=== PATIENT | male | born 1950 | race Caucasian/White ===

== ENCOUNTER → 2017-11-05 | Outpatient (CLI) | payer OTHER ==
[~2017-11-05] MED LIST: AMLO5TAB3 PO; ASPCH81X PO; ASPI-320 PO; ATOR-26 PO; ATV5X PO; CITA10TA4 PO; COEN30CA6 PO; LPR25 PO; LPT40 PO; LSN25 PO; LSX20 PO; NITR0.4S UT; NTRGSL/4 UT; OXYC-609 PO; PLV75 PO; POTA10CA28 PO; RANO500T PO; ZSTI
[2017-11-05 17:54] LABS: BLOOD UREA NITROGEN 27 mg/dl (7-18); CALCIUM 8.7 mg/dl (8.5-10.1); CARBON DIOXIDE 26 mmol/L (21-32); CREATININE 1.15 mg/dl (0.60-1.40); GLUCOSE 94 mg/dl (70-99); POTASSIUM 4.1 mmol/L (3.5-5.1); SODIUM 137 mmol/L (136-145)
[2017-11-05 18:20] LABS: HEMATOCRIT 38.7 % (42-52); HEMOGLOBIN 13.4 g/dL (14.0-18.0); MEAN CELL VOLUME 91.9 fL (80-100); MEAN CORPUSCULAR HEMOGLOBIN 31.8 pg (25-34); MEAN CORPUSCULAR HGB CONC 34.6 g/dl (32-36); MEAN PLATELET VOLUME 10.3 fL (7.4-10.4); PLATELET COUNT 192 K/uL (130-400); RED CELL DISTRIBUTION WIDTH CV 13.3 % (11.5-14.5); RED CELL DISTRIBUTION WIDTH SD 44.1 fL (36.4-46.3); WHITE BLOOD COUNT 6.03 K/uL (4.8-10.8)
== END | disposition home or self-care (01) ==
LOC: C.LABMFLN 15:22
PROVIDERS: ATTEND Internal Medicine Cardiovascular Disease
DX: I25.10 Atherosclerotic heart disease of native coronary artery without angina pectoris (principal); R06.09 Other forms of dyspnea

== ENCOUNTER → 2017-11-13 | Day surgery (SDC) | payer OTHER ==
[~2017-11-13] VITALS: Ht 180.3 cm; Wt 102.0 kg
[~2017-11-13] MED LIST changes: +ACETAMINOPHEN 325 MG TAB PO PRN; +FENTANYL CITRATE INJ 50 MCG/1 ML 2 ML VIAL ONE; +HEPARIN SOD (PORCINE) 1000 UNIT/ML 10 ML VIAL ONE; +MIDAZOLAM HCL 1 MG/ML 2ML VIAL ONE; +NITROGLYCERIN 0.4 MG SL PER TAB CHARGE SL PRN; +NITROGLYCERIN/D5W 100MCG/ML 20ML SYR ONE; +NiCARDipine HCL INJ 2.5 MG/ML 10 ML AMP ONE; +ONDANSETRON INJ 2 MG/ML 2 ML VIAL IV PRN; +SODIUM CHLORIDE 0.9% 1000ML 1,000 ML IV SCH; +SODIUM CHLORIDE 0.9% 1000ML 250 ML IV PRN
[2017-11-13 09:03] VITALS: BMI 31.0
[2017-11-13 09:04] VITALS: BP 138/69; PULSE 60; TEMP 36.6; O2SAT 98; Ht 180.3 cm; Wt 102.0 kg
--- NOTE | 2017-11-13 09:15 | History & Physical Bridge Note ---
H&P Re-Evaluation Bridge Note: I have examined the patient, reviewed the History & Physical and in the interval since the performance of the History & Physical I have noted the following changes of clinical significance: . He did not tolerate isosorbide mononitrate due to headache. Ranexa is expensive. Symptoms are worsening and has had some rest chest pain. Otherwise, No changes noted
--- NOTE | 2017-11-13 09:17 | Pre Sedation Assessment ---
Pre Sedation Assessment General Date of Sedation: Nov 13, 2017. Review Cardiovascular: regular rate, rhythm, no murmur Lungs: lungs clear Pre-Sedation Airway Assessment Smoking Status: Never Smoker Hx of Sleep Apnea: No Short Thick Neck: No Oral Cavity: WNL Mallampati Classification: Class I ASA Classification: Class III NPO Status Date of Last Intake of Fluids: Nov 12, 2017 Time of Last Intake of Fluids: 20:00 Date of Last Intake of Solids: Nov 12, 2017 Time of Last Intake of Solids: 20:00 Procedure Planning Contraindications for Sedation: None Current Medications Reviewed: Yes Notes The planned sedation has been discussed with the patient. Informed Consent was obtained. I have identified the patient, determined the appropriateness of sedation and have assessed the patient immediately prior to the procedure. All medicine(s) and interventions are by my order.
--- NOTE | 2017-11-13 10:40 | Post Sedation Assessment ---
Post Sedation Assessment General Date of Sedation Nov 13, 2017. Vital Signs: Vital Signs Past 12 Hours Date Time Temp Pulse Resp B/P (MAP) Pulse Ox O2 Delivery O2 Flow Rate FiO2 11/13/17 10:33 54 16 133/78 (96) 96 Room Air 11/13/17 09:04 36.6 60 16 138/69 (92) 98 Room Air Post Procedure Recovery Score Activity: (2) Moves 4 extremities * Respiration: (2) Deep breath/cough Circulation: (2) +/-20% PreAnes Value Consciousness: (2) Fully Awake Oxygen Saturation: (2) > 92% On Room Air Post Anesthesia Score: 10 Discharge Sedation Level of Care: Fast Track Phase II Post Sedation Plan On clinical assessment, the patient appears to have tolerated the sedation without complications. Patient is recovering as anticipated. Patient will continue to be monitored by nursing and may be discharged when sedation discharge criteria are met per below protocol. Upon Completions of procedure and additional 15 minutes continue every 5 minute vital signs and the P.A.R. score; then discharge to a Phase I or Fast Track to Phase II per the following guidelines: * Discharge Patient to appropriate Phase II area if PAR is 8 or greater or return to pre- procedure baseline. The post - procedure orders will be as directed. * If PAR score is less than 8 or not return to pre-procedure baseline then patient will follow Phase I monitoring till PAR is reached for Phase II. The Phase I may be done in procedure room or may call to secure a Phase I area. * If naloxone or flumazenil are used for reversal, hold in Phase I for an additional 60 -120 minutes before discharge to Phase II. Please call the Sedation Physician to re-evaluate and complete post-note for discharge to Phase II area. Do NOT discharge from procedure sedation or Phase 1 until post- sedation evaluation note is complete by procedure /sedation MD Sedation Discharge Instructions to be given to the patient at discharge to home.
--- NOTE | 2017-11-13 10:41 | Cardiac Catheterization ---
Procedure Note Procedure Date Nov 13, 2017. Pre-Procedure Diagnosis Angina, Positive Stress Test, CAD AUC Score 9 Post-Procedure Diagnosis Severe CAD Procedure(s) Performed Coronary Angiography, Left Heart Cath Home Staging Specialist Dr. Bernard Director Of Mechanical Engineering(s) Kenney Lozano Estimated Blood Loss < 25 ml Medication(s) Fentanyl, Heparin, Nicardipine, Versed, Lidocaine 1% Summary of Findings Coronary angiography: 1. Left main coronary artery: The LMCA is short in duration and appears to be small in caliber compared to the LAD, ramus intermedius, and circumflex. Given its short length, it is difficult to notice a discrete lesion, but the caliber appears to be at least 50% smaller than of the LAD. There was no dampening of the waveform when engaged with a 6 Portuguese JL 3.5 diagnostic catheter. 2. Left anterior descending: The LAD is a large caliber vessel that wraps around the apex. Ostial LAD 50%. Proximal LAD 30%. Mid LAD stent is patent. Just distal to the stent there is a haziness with a narrowing of approximately 50% visually. Large caliber D1 and medium caliber D2 without significant CAD. 3. Circumflex: Proximal circumflex 30%. Mid circumflex 30%. He distal circumflex continues as a small caliber AV groove vessel. Medium caliber OM1 without significant CAD. 4. Right coronary artery: The RCA is large and dominant. Diffuse mild nonobstructive CAD. Proximal RCA proximally 20%. Mid RCA 40%. Distal RCA 20% . PDA and PL branch without significant CAD. 5. Ramus intermedius: Medium to large caliber ramus. Ostial ramus 70% angiographically. BENITA 3 flow. Left heart catheterization: 1. Left ventriculography was not performed due to recent echo. 2. No aortic stenosis. 3. Normal LVEDP; 12mmHg. Sedation start time: 9:32 a.m. Sedation end time: 9:58 a.m. Impression: 1. Concern for significant left main coronary artery CAD. 2. Patent mid LAD stent with at least moderate CAD just distal to the stent with hazy appearance. 3. Severe CAD involving the ostial ramus intermedius. 4. Nonobstructive CAD within the RCA, circumflex, and ostial and proximal LAD. 5. Normal LVEDP. 6. No aortic stenosis. Plan: 1. Images were reviewed with Interventional Cardiology with concern of left main coronary artery. Dr. Ramirez plans for IVUS of left main coronary artery. Hemodynamics Rest Ao: 124/58 Final Ao: 123/58 LV: 126/0/12 Recommendations management recommendations (IVUS of LMCA) Specimens None Radiation Exposure (mGy) 1500 mGy. Fluoro time 6.7 min Contrast (mls) 70 ml Procedural Complication(s) None Disposition Alternative Financing Specialist Holding/Recovery ACC Data Cardiac Status Clinical evaluation leading to the procedure CAD Presntation: Stable angina, Positive Stress Test Anginal Classification: CCS III Heart Failure: No Cardiogenic Shock w/in 24Hrs: No Cardiac Arrest w/in 24Hrs: No Imaging studies past 6 months: No Stress studies past 6 months: Yes Standard Exercise Stress Test: Yes - Negative Stress Echocardiogram: Yes - Positive, Risk/Extent of Ischemia (Intermediate) Stress Testing w/SPECT MPI: No Cardiac CTA: No Coronary Anatomy Dominant: Right Left Main (% Stenosis): Ostial (50%) LAD (% Stenosis): Ostial (50%), Proximal (30%), Mid (50% and hazy just distal to mid LAD stent (Stent is patent)) D1 (% Stenosis): Normal D2 (% Stenosis): Normal Circumflex (% Stenosis): Proximal (30%), Mid (30%) OM1 (% Stenosis): Normal RCA (% Stenosis): Proximal (20%), Mid (40%), Distal (20%) R PDA (% Stenosis): Normal R PL1 (% Stenosis): Normal Ramus (% Stenosis): Ostial (70%) Left Ventricular Angiography EF (%): n/a Diagnostic Physician's Name: Percy Bernard MD Status: Elective Closure Device Percutaneous Entry Location: Radial Closure Device: Radial Band Recommendations: management recommendations (IVUS of LMCA)
--- NOTE | 2017-11-13 10:53 | Cardiac Catheterization ---
Procedure Note Procedure Date Nov 13, 2017. Pre-Procedure Diagnosis Positive Stress Test AUC Score 7 Post-Procedure Diagnosis Severe CAD Procedure(s) Performed Coronary Angiography, IVUS Gum Cook James Speed Runner(s) Marta Estimated Blood Loss 10 Medication(s) Fentanyl, Heparin, Versed Summary of Findings Indication: Positive stress test; known coronary artery disease with prior LAD stent Access: 6Fr slender right radial artery Catheters: JL3.5 guide Findings: For full details of patient's coronary angiography please see cath report dictated by Dr. Bernard. Briefly patient noted to have a patent LAD stent with suspected borderline LM disease. Decision to proceed with IVUS assessment of LM. -- IVUS Procedure -- LM cannulated with JL3.5 guide BMW wire placed into distal LAD IVUS LAD - pullback showed moderately calcifed plaque with 60-70% stenosis distal to prior stent. Stent patent with no significant ISR. Proximal LAD with diffuse moderate disease. Ostial LAD showed severe stenosis 70% (CSA 4.5 cm2) extending into LM. LM very short calcified with moderate eccentric plaque. BMW wire removed from LAD and placed into circumflex/OM2 IVUS circumflex -- moderate caliber vessel with 80-90% proximal stenosis Arterial Closure: TR Band Summary: 1. Severe ostial LAD stenosis extending into calcified left main with moderate eccentric plaque. 2. Severe proximal circumflex disease. Recommendations: CT surgery evaluation for consideration of CABG Hemodynamics Rest Ao: 124/58 Final Ao: 123/58 LV: -- Recommendations CABG Specimens None Radiation Exposure (mGy) 3171 Contrast (mls) 120 Fluids (cc crystalloids) 114 Drains None Anesthesia Moderate Procedural Complication(s) None Disposition Trouble Locator Test Desk Holding/Recovery ACC Data Cardiac Status Clinical evaluation leading to the procedure CAD Presntation: Positive Stress Test Anginal Classification: CCS III Heart Failure: No, NYHA Class: CCS I Cardiogenic Shock w/in 24Hrs: No Cardiac Arrest w/in 24Hrs: No Imaging studies past 6 months: Yes Stress studies past 6 months: Yes Stress Echocardiogram: Yes - Positive Diagnostic Physician's Name: Percy Bernard MD Status: Elective Closure Device Percutaneous Entry Location: Radial Closure Device: Radial Band Recommendations: CABG Lesion Segment Name: LM/ostial LAD IVUS: Yes Intraprocedure Events Significant Dissection: No Perforation: No
--- NOTE | 2017-11-13 11:12 | Discharge Instructions ---
Discharge Instructions Date of Service Nov 13, 2017. Visit Reason for Visit: Cardiac cath for abnormal stress echo and angina. Discharge Discharge Diagnosis / Problem: Severe coronary artery disease. Discharge Goals Goal(s): Diagnostic testing Medications Stopped Medications Name(s): Plavix Activity Recommendations Activity Limitations: per Instructions/Follow-up section Anesthesia . Post Anesthesia Instructions: If you have had General Anesthesia or IV Sedation: * Do not drive today. * Resume driving when surgeon permits. * Do not make important decisions or sign legal documents today. * Call surgeon for: 1. Temperature elevations greater than 101 degrees F. 2. Uncontrollable pain. 3. Excessive bleeding. 4. Persistent nausea and vomiting. 5. Medication intolerance (nausea, vomiting or rash). * For nausea and vomiting use only clear liquids such as: tea, soda, bouillon until nausea subsides, then gradually increase diet as tolerated. * If you have any concerns or questions, call your surgeon's office. If physician is unavailable and it is an emergency, call 911 or go to the nearest emergency room. . Instructions / Follow-Up Instructions / Follow-Up Follow up: 1. Recommend CT surgery evaluation for bypass surgery. Because you deny angina at rest, this can be done as an outpatient, but recommend that you be seen soon. [facility] will contact you soon with date/time of appointment. 2. If you experience angina that does not resolve within 5 min or if it occurs at rest, recommend calling 911 immediately. 3. Follow up with Dr. Bernard's office following bypass surgery. Please call his office when you are discharged from [facility]. ACTIVITY RECOMMENDATIONS: Excess manipulation of the wrist should be avoided for the next 24-48 hours. * No lifting over 2 pounds (approximately a 1/2 gallon of milk) with the utilized arm for 24 hours. * No strenuous activity such as bowling or tennis for 3 days. * Keep the site of the procedure covered with a bandage for 24 hours. *You may shower the day after the procedure. Do not take a tub bath or submerge the puncture site in water for the next 3 days. *Do not operate any motorized equipment for 3 days. SPECIAL CARE INSTRUCTIONS: The site may be slightly bruised and sore following your procedure. Should any of the following occur, contact the DrZee who performed your procedure. 1. Redness/inflammation, swelling, chills, or fever, or colored drainage at procedure site within 3-7 days after your procedure. 2. Coldness, discoloration, ongoing numbness, severe pain, or swelling. Expect mild tingling of hand and tenderness at the puncture site for up to three days. If this persists beyond three days, or other symptoms develop, notify the Dr. who performed your procedure. BLEEDING: If the procedure site on your wrist begins to bleed, do not panic 1. Place 1 or 2 fingers firmly just slightly above the insertion site to stop the bleeding. You may be able to feel your pulse as you hold pressure. 2. Lift your finger after 5 minutes to see if the bleeding has stopped. 3. Once the bleeding has stopped, gently wipe the wrist area clean with a bandage. * If the bleeding from your wrist does not stop after 10 minutes, or if there is a large amount of bleeding or spurting, call 911 (do not drive yourself to the hospital). SKIN IRRITATION: * You may experience some redness and/or swelling in the area where radiation was administered. If any skin irritation occurs, please contact your family physician. FOLLOW UP VISIT: Keep any scheduled doctor appointments. Diet Recommendations Recommended Home Diet: low cholesterol Procedures Procedures Performed: 1. Coronary angiography and left heart cath 2. IVUS of left main coronary artery and left anterior descending artery. Pending Studies Studies pending at discharge: no Medical Emergencies . Who to Call and When: Medical Emergencies: If at any time you feel your situation is an emergency, please call 911 immediately. . Non-Emergent Contact Non-Emergency issues call your: Dividend Deposit Entry Clerk . . "Provider Documentation" section prepared by Percy Gonsalves. .
[2017-11-13 13:30] VITALS: BP 138/72; PULSE 59; O2SAT 96
--- NOTE | 2017-11-13 14:25 | DIAGNOSTIC IMAGING REPORT ---
ULTRASOUND OF THE CAROTID ARTERIES CLINICAL HISTORY: Coronary artery disease. Preoperative examination. COMPARISON STUDY: No priors. TECHNIQUE: Real-time, grayscale, and color Doppler sonography of the carotid arteries is performed. Images are reviewed in the transverse and longitudinal planes. FINDINGS: Blood pressures were not assessed. The carotid arteries are patent bilaterally and demonstrate antegrade flow. There is mild atherosclerotic plaque seen in the carotid bulb. Normal doppler arterial waveforms are seen throughout. Velocity measurements are listed below. Common carotid peak systolic velocity (cm/sec): RIGHT: 56 LEFT: 65 ICA proximal peak systolic velocity (cm/sec): RIGHT: 62 LEFT: 66 ICA mid peak systolic velocity (cm/sec): RIGHT: 69 LEFT: 115 ICA distal peak systolic velocity (cm/sec): RIGHT: 81 LEFT: 84 ICA/CC peak systolic ratio: RIGHT: 1.4 LEFT: 1.8 Antegrade flow was shown in the vertebral arteries. The external carotid arteries are patent. IMPRESSION: 1. There is no sonographic evidence of hemodynamically significant stenosis in the right or left carotid arterial system. 2. Antegrade flow is shown in the vertebral arteries. Electronically signed by: Myles Hernandez M.D. 11/13/2017 2:24 PM Dictated Date/Time: 11/13/2017 2:21 PM
== END | disposition home or self-care (01) ==
LOC: C.CATH 08:08
PROVIDERS: ATTEND Internal Medicine Cardiovascular Disease
DX: I25.10 Atherosclerotic heart disease of native coronary artery without angina pectoris (principal); R06.09 Other forms of dyspnea; E78.5 Hyperlipidemia, unspecified; I10 Essential (primary) hypertension; Z90.89 Acquired absence of other organs; Z95.818 Presence of other cardiac implants and grafts; Z83.3 Family history of diabetes mellitus; Z82.49 Family history of ischemic heart disease and other diseases of the circulatory system; Z82.0 Family history of epilepsy and other diseases of the nervous system; F32.9 Major depressive disorder, single episode, unspecified; Z79.82 Long term (current) use of aspirin

== ENCOUNTER 2017-12-11 15:45 | Observation (INO) | payer OTHER ==
[~2017-12-11] VITALS: Ht 182.9 cm; Wt 103.1 kg
[~2017-12-11 15:45] MED LIST changes: -ACETAMINOPHEN 325 MG TAB PO PRN; +AMLO-110 PO; -AMLO5TAB3 PO; -ASPCH81X PO; +ASPEC81 PO; -ASPI-320 PO; -ATOR-26 PO; -ATV5X PO; -COEN30CA6 PO; -FENTANYL CITRATE INJ 50 MCG/1 ML 2 ML VIAL ONE; -HEPARIN SOD (PORCINE) 1000 UNIT/ML 10 ML VIAL ONE; -LPR25 PO; -LSN25 PO; -LSX20 PO; -MIDAZOLAM HCL 1 MG/ML 2ML VIAL ONE; -NITR0.4S UT; -NITROGLYCERIN 0.4 MG SL PER TAB CHARGE SL PRN; -NITROGLYCERIN/D5W 100MCG/ML 20ML SYR ONE; -NiCARDipine HCL INJ 2.5 MG/ML 10 ML AMP ONE; -ONDANSETRON INJ 2 MG/ML 2 ML VIAL IV PRN; -OXYC-609 PO; -PLV75 PO; -POTA10CA28 PO; -SODIUM CHLORIDE 0.9% 1000ML 1,000 ML IV SCH; -SODIUM CHLORIDE 0.9% 1000ML 250 ML IV PRN; -ZSTI
[2017-12-11] MEDS ORDERED: OXYC-609 PO (16:06)
[2017-12-11] MEDS ORDERED: ATV5X PO (16:06)
[2017-12-11] MEDS ORDERED: LPR25 PO (16:06)
[2017-12-11 17:14] LABS: BASO % 0.3 %; BASO ABS # 0.02 K/uL (0-0.2); EOS % 2.7 %; EOS ABS # 0.16 K/uL (0-0.5); HEMATOCRIT 27.8 % (42-52); HEMOGLOBIN 9.2 g/dL (14.0-18.0); IG# 0.01 K/uL (0.00-0.02); LYMPH % 18.2 %; LYMPH ABS # 1.07 K/uL (1.2-3.4); MEAN CELL VOLUME 95.9 fL (80-100); MEAN CORPUSCULAR HEMOGLOBIN 31.7 pg (25-34); MEAN CORPUSCULAR HGB CONC 33.1 g/dl (32-36); MEAN PLATELET VOLUME 9.5 fL (7.4-10.4); MONO % 8.9 %; MONO ABS # 0.52 K/uL (0.11-0.59); NEUT % 69.7 %; NEUT ABS # 4.09 K/uL (1.4-6.5); PLATELET COUNT 235 K/uL (130-400); RED CELL DISTRIBUTION WIDTH CV 16.5 % (11.5-14.5); WHITE BLOOD COUNT 5.87 K/uL (4.8-10.8)
[2017-12-11 17:23] LABS: PTT PATIENT 25.6 SECONDS (21.0-31.0)
[2017-12-11] MEDS ORDERED: FUROSEMIDE 40 MG/4 ML VIAL IV STA (17:30)
[2017-12-11 17:36] LABS: ALBUMIN 3.3 gm/dl (3.4-5.0); CALCIUM 8.5 mg/dl (8.5-10.1); CREATININE 0.98 mg/dl (0.60-1.40); POTASSIUM 4.3 mmol/L (3.5-5.1)
[2017-12-11 17:50] LABS: CKMB 0.9 ng/ml (0.5-3.6); TOTAL PROTEIN 6.5 gm/dl (6.4-8.2)
--- NOTE | 2017-12-11 18:03 | Cardiology Consultation ---
Cardiology Consultation Date of Consultation: Dec 11, 2017. Requesting Physician: Dr. Vang and Dr. Merchant Attending Physician: Dr. Merchant Reason for Consultation: SOB Pt evaluation today including: conversation w/ patient, conversation w/ family , physical exam, chart review, lab review, review of studies, review of inpatient medication list, conversation w/ attending History of Present Illness Mr. Patton is a very pleasant 67-year-old gentleman with a history significant for CAD, LAD PCI, CABG x 3, hypertension, and dyslipidemia. He has had the following studies/procedures: 1. Stress echo 07/27/2015: Abnormal stress echo demonstrating akinesis of the apex, anterior, anteroseptal, and anterolateral nguyen, concerning for LAD ischemia resting EF 55% with normal wall motion. Exercised 4 minutes and 30 seconds on Arturo protocol. 90% MPHR. Chest pain with exercise. 2. Cardiac catheterization 07/27/2015: Ostial LAD 20%. Mid LAD 90%. 3 x 18 mm resolute CHELSEA mid LAD. Small step-down reported. 3. Stress echo 10/09/2015: Normal stress echo and ECG at 95% MPHR. Exercised 9 minutes on Arturo protocol. Hypertensive response to exercise. 4. Cardiac catheterization 11/13/2017: Severe LMCA CAD. Ostial LAD 70%. Proximal LAD 30%. Mid LAD stent patent. Distal to mid LAD stent haziness with 60-70%. Proximal circumflex 80-90%. Mid circumflex 30%. Proximal RCA 20%. Mid RCA 40%. Distal RCA 20%. Ostial ramus 70%. LVEDP 12. 5. CABG x3 at [facility] 12/02/2017: HOUSE to LAD; SVG to ramus; SVG to distal circumflex. He underwent bypass surgery at [facility] on 12/02/2017. Postop recovery was complicated by postoperative atrial fibrillation which was reportedly treated amiodarone therapy. He also had a right sided pneumothorax and received a pigtail catheter. He was discharged on 12/09/2017. He states that he did not feel well night before discharge and has not felt well since. He received Lasix the first few days following surgery and believes he may have felt better than. Since then he has felt very tired and short of breath. He pushes himself more yesterday and last evening felt very tired and restless. He was unable to sleep. At 2:30 a.m. in the morning he was more significantly short of breath. Dyspnea occurred both at rest and with exertion. He also felt short of breath while laying in bed. He has had edema but thought actually looked a bit better yesterday. He also feels a tremor in sensation in his chest up into his neck and head. He has noted this ever since surgery. It shoots across the right side of his chest to the left. He denies actual angina. His sternotomy site has not been significantly uncomfortable. He denies any recent fevers, chills, cough, drainage from his sternotomy site, bleeding, melena, hematochezia, nausea, vomiting, or syncope. He has noted his heart beating more ever since surgery. While at [facility], he was noted to be in normal sinus rhythm on ECG. He is also in sinus rhythm here as documented on ECG and telemetry. Review of systems: As above. Review of systems otherwise negative/ unremarkable. Past Medical/Surgical History 1. CAD status post mid LAD PCI and CABG x3 2. Hypertension 3. Dyslipidemia 4. Postoperative atrial fibrillation 5. Headache Family History No known premature CAD in first-degree relatives. Paternal uncles suddenly in 60s or 70s. Social History Smoking Status: Never Smoker History of Alcohol Use: No Denies tobacco, alcohol, or drug abuse. and lives at home with his . Has 2 daughters, Gloria and Sheryl, who are TRAINING CONSULTANT's with [employer] [facility] [place], and 1 son. His children live locally. 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 His family is present at his bedside. Allergies Coded Allergies: Lisinopril (Unverified Allergy, Unknown, unknown, 12/11/17) Loratadine (Unverified Allergy, Unknown, unknown, 12/11/17) Medications Current Inpatient Medications Medications (Trade) Dose Ordered Sig/Joe Route Start Time Stop Time Status Last Admin Dose Admin Furosemide 20 mg/ Syringe 2 ml @ 4 mls/min ONE IV 12/11/17 22:00 01/10/18 21:59 UNV Home medications include 1. Aspirin 81 mg daily 2. Amlodipine 5 mg daily 3. Metoprolol 25 mg twice daily 4. Lipitor 80 mg daily 5. Ranexa 500 mg twice daily 6. Citalopram 7. Oxycodone p.r.n. Physical Exam Vital Signs Past 12 Hours Date Time Temp Pulse Resp B/P (MAP) Pulse Ox O2 Delivery O2 Flow Rate FiO2 12/11/17 17:06 98 Room Air 12/11/17 17:04 72 12/11/17 15:54 36.7 80 20 111/73 96 Room Air Gen.: No acute distress. Alert and oriented. HEENT: Anicteric sclera. Neck: No significant JVD, but does have hepatic jugular reflux. No bruits. Normal carotid upstrokes bilaterally. Cardiac: PMI was nondisplaced. No ventricular heave. Regular. Normal S1-S2. No murmurs, rubs, or gallops. Pulmonary: Clear to auscultation bilaterally without wheezes, rales, or rhonchi. Abdomen: Soft, nontender, nondistended, with normoactive bowel sounds. No bruits noted. Extremities: 2+ radial pulses bilaterally. 2+ posterior tibialis pulses bilaterally. Bilateral lower extremity edema, trace to 1+. No cyanosis. Psychiatric: Affect appears appropriate. Chest: Sternotomy site appears clean, dry, and intact without erythema or discharge. Data Laboratory Results: Last 24 Hours Test 12/11/17 16:08 12/11/17 17:03 Creatine Kinase MB Ratio White Blood Count 5.87 K/uL Red Blood Count 2.90 M/uL Hemoglobin 9.2 g/dL Hematocrit 27.8 % Mean Corpuscular Volume 95.9 fL Mean Corpuscular Hemoglobin 31.7 pg Mean Corpuscular Hemoglobin Concent 33.1 g/dl Platelet Count 235 K/uL Mean Platelet Volume 9.5 fL Neutrophils (%) (Auto) 69.7 % Lymphocytes (%) (Auto) 18.2 % Monocytes (%) (Auto) 8.9 % Eosinophils (%) (Auto) 2.7 % Basophils (%) (Auto) 0.3 % Neutrophils # (Auto) 4.09 K/uL Lymphocytes # (Auto) 1.07 K/uL Monocytes # (Auto) 0.52 K/uL Eosinophils # (Auto) 0.16 K/uL Basophils # (Auto) 0.02 K/uL RDW Standard Deviation 52.0 fL RDW Coefficient of Variation 16.5 % Immature Granulocyte % (Auto) 0.2 % Immature Granulocyte # (Auto) 0.01 K/uL Prothrombin Time 10.5 SECONDS Prothromb Time International Ratio 1.0 Activated Partial Thromboplast Time 25.6 SECONDS Partial Thromboplastin Ratio 1.0 Sodium Level 137 mmol/L Potassium Level 4.3 mmol/L Chloride Level 106 mmol/L Carbon Dioxide Level 26 mmol/L Anion Gap 5.0 mmol/L Blood Urea Nitrogen 22 mg/dl Creatinine 0.98 mg/dl Est Creatinine Clear Calc Drug Dose 94.1 ml/min Estimated GFR () 93.4 Estimated GFR (Non- 80.6 BUN/Creatinine Ratio 22.3 Random Glucose 90 mg/dl Calcium Level 8.5 mg/dl Magnesium Level 2.3 mg/dl Direct Bilirubin 0.4 mg/dl Alanine Aminotransferase (ALT/SGPT) 82 U/L Albumin 3.3 gm/dl CTA chest at [facility] 12/11/2017: No pulmonary embolus or aortic dissection. Mild atelectatic lung and/or infiltrate of the left lung base with small pleural effusion. ECG personally reviewed. ECG at [facility] 12/11/2017 at 8:26 a.m.: Sinus rhythm at 72 bpm. Inferior infarct. Telemetry personally reviewed Sinus rhythm noted on telemetry. Records from [facility] were obtained and reviewed. Operative note from [facility] was obtained and reviewed. Catheterization report reviewed. Labs reviewed. ProBNP at [facility] was elevated at 941. Assessment & Plan ASSESSMENT/PLAN: 1. Acute diastolic CHF: He appears to be mildly hypervolemic following his bypass surgery. Some of this may be diastolic heart failure while some could be iatrogenic following his recent hospitalization. Recommend Lasix 20 mg IV now and again in a few hours to promote diuresis. Monitor labs in the morning. Low-sodium diet. Hopefully his shortness of breath improves. Monitor fluid balance and daily weight. Echocardiogram in the morning. 2. CAD status post PCI and CABG x3: No angina. High sensitivity troponin level was negative at [facility]. Recommend continuation of aspirin 81 mg daily. Continue high-intensity statin therapy continue beta-breanna. Ranexa can be discontinued now that he has undergone revascularization. 3. Hypertension: Continue home medications. Blood pressure adequately controlled. 4. Disposition: Cardiology will continue to follow. Plan of care has been discussed with Dr. Merchant, the admitting physician for the hospitalist group. Case was also discussed with ER physician, Taj. Greater than 40 minute spent, with greater than 50% of that time spent counseling patient and his family and coordinating care with other involved physicians.
[2017-12-11] MEDS ORDERED: LORAZEPAM 0.5 MG TAB PO PRN (18:30)
[2017-12-11] MEDS ORDERED: NITROGLYCERIN 0.4 MG SL PER TAB CHARGE SL PRN (18:30)
[2017-12-11] MEDS ORDERED: ACETAMINOPHEN 325 MG TAB PO PRN (18:30)
--- NOTE | 2017-12-11 18:55 | History and Physical ---
History & Physical Date & Time of Service: Dec 11, 2017 at 18:32 Chief Complaint: SOB Primary Care Physician: Myles Rushing M.D. History of Present Illness Source: patient, hospital records, other 67 y/o M Hx HTN, HPL, CAD - underwent 3 vessel CABG 12/02/17 - post-op course complicated by a R pneumothorax and post-op AF. The pt since discharge states that he has felt increasingly weak, c/o a fluttering sensation in his chest and is SOB with exertion. He does not c/o CP, a productive cough, N/V, diarrhea, dysuria or fevers. He was at [place] earlier in the day and underwent a CTA to assess for PE and dissection, neither of which were present. There was some concern for a LLL infiltrate, although the reading was hedged with the option of atelectasis. The pt was evaluated by cardiology in the ER and is admitted due to suspicion of new-onset CHF. Initial labs reveal anemia and a marginal troponin which is expected. LFTs are also elevated. Past Medical/Surgical History 1) CAD 2) HTN 3) HPL 4) Post-op AF 5) Post-op R pneumothorax Cardiac history as follows per cardiology 1. Stress echo 07/27/2015: Abnormal stress echo demonstrating akinesis of the apex, anterior, anteroseptal, and anterolateral nguyen, concerning for LAD ischemia resting EF 55% with normal wall motion. Exercised 4 minutes and 30 seconds on Arturo protocol. 90% MPHR. Chest pain with exercise. 2. Cardiac catheterization 07/27/2015: Ostial LAD 20%. Mid LAD 90%. 3 x 18 mm resolute CHELSEA mid LAD. Small step-down reported. 3. Stress echo 10/09/2015: Normal stress echo and ECG at 95% MPHR. Exercised 9 minutes on Arturo protocol. Hypertensive response to exercise. 4. Cardiac catheterization 11/13/2017: Severe LMCA CAD. Ostial LAD 70%. Proximal LAD 30%. Mid LAD stent patent. Distal to mid LAD stent haziness with 60-70%. Proximal circumflex 80-90%. Mid circumflex 30%. Proximal RCA 20%. Mid RCA 40%. Distal RCA 20%. Ostial ramus 70%. LVEDP 12. 5. CABG x3 at [facility] 12/02/2017: HOUSE to LAD; SVG to ramus; SVG to distal circumflex. Family History Patient reports no known family medical history. 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 Smoking Status: Never Smoker Marital Status: Occupational Status: employed Multi-Drug Resistant Organisms History of MDRO: No Allergies Coded Allergies: Lisinopril (Unverified Allergy, Unknown, unknown, 12/11/17) Loratadine (Unverified Allergy, Unknown, unknown, 12/11/17) Home Medications Scheduled Amlodipine (Norvasc), 5 MG PO DAILY Aspirin (Aspirin EC Low Dose), 81 MG PO QAM Atorvastatin (Lipitor), 80 MG PO QAM Citalopram Hydrobromide (Citalopram Hydrobromide), 1 TAB PO DAILY Metoprolol Tartrate (Lopressor), 25 MG PO BID Nitroglycerin (Nitrostat), 0.4 MG UT PRN Ranolazine (Ranexa), 1,000 MG PO BID Scheduled PRN Lorazepam (Lorazepam), 0.5 MG PO Q6 PRN for Anxiety Oxycodone HCl (Oxycodone HCl), 5 MG PO Q8 PRN for Pain Review of Systems Constitutional: + weakness, No fever, No chills, No sweats Eyes: No worsening of vision ENT: No hearing loss, No unusual epistaxis, No nasal symptoms Respiratory: + dyspnea on exertion, No cough, No sputum, No wheezing Cardiovascular: No chest pain, No orthopnea, No PND Abdomen: No pain, No nausea, No vomiting Musculoskeletal: + problem reported (Minimal chest wall pain at surgical site) , No joint pain Genitourinary - Male: No hematuria, No dysuria Neurologic: + weakness, No memory loss, No paralysis Psychiatric: No depression symptoms Endocrine: + fatigue Hematologic / Lymphatic: No abnormal bleeding/bruising Integumentary: No rash Allergic / Immunologic: No environmental allergies Physical Exam Vital Signs Date Time Temp Pulse Resp B/P (MAP) Pulse Ox O2 Delivery O2 Flow Rate FiO2 12/11/17 18:18 70 18 124/63 98 Room Air 12/11/17 17:06 98 Room Air 12/11/17 17:04 72 12/11/17 15:54 36.7 80 20 111/73 96 Room Air General Appearance: WD/WN, no apparent distress Head: normocephalic Eyes: normal inspection ENT: normal ENT inspection, pharynx normal Neck: supple, + JVD (Minimal JVD is present ) Respiratory/Chest: + pertinent finding (LArge sternotomy scar - appears to be healing well) Cardiovascular: regular rate, rhythm, no edema, no gallop Abdomen/GI: normal bowel sounds, non tender, soft Back: normal inspection, no CVA tenderness Extremities/Musculoskelatal: normal capillary refill, + pedal edema, + pertinent finding (Bruising due to v. stripping is present) Neurologic/Psych: director trading II-XII nml as tested, no motor/sensory deficits, alert, oriented x 3 Skin: normal color Diagnostics Laboratory Results Results Past 24 Hours Test 12/11/17 17:03 12/11/17 18:13 Range/Units White Blood Count 5.87 4.8-10.8 K/uL Red Blood Count 2.90 4.7-6.1 M/uL Hemoglobin 9.2 14.0-18.0 g/dL Hematocrit 27.8 42-52 % Mean Corpuscular Volume 95.9 80-100 fL Mean Corpuscular Hemoglobin 31.7 25-34 pg Mean Corpuscular Hemoglobin Concent 33.1 32-36 g/dl Platelet Count 235 130-400 K/uL Mean Platelet Volume 9.5 7.4-10.4 fL Neutrophils (%) (Auto) 69.7 % Lymphocytes (%) (Auto) 18.2 % Monocytes (%) (Auto) 8.9 % Eosinophils (%) (Auto) 2.7 % Basophils (%) (Auto) 0.3 % Neutrophils # (Auto) 4.09 1.4-6.5 K/uL Lymphocytes # (Auto) 1.07 1.2-3.4 K/uL Monocytes # (Auto) 0.52 0.11-0.59 K/uL Eosinophils # (Auto) 0.16 0-0.5 K/uL Basophils # (Auto) 0.02 0-0.2 K/uL RDW Standard Deviation 52.0 36.4-46.3 fL RDW Coefficient of Variation 16.5 11.5-14.5 % Immature Granulocyte % (Auto) 0.2 % Immature Granulocyte # (Auto) 0.01 0.00-0.02 K/uL Prothrombin Time 10.5 9.0-12.0 SECONDS Prothromb Time International Ratio 1.0 0.9-1.1 Activated Partial Thromboplast Time 25.6 21.0-31.0 SECONDS Partial Thromboplastin Ratio 1.0 Sodium Level 137 136-145 mmol/L Potassium Level 4.3 3.5-5.1 mmol/L Chloride Level 106 98-107 mmol/L Carbon Dioxide Level 26 21-32 mmol/L Anion Gap 5.0 3-11 mmol/L Blood Urea Nitrogen 22 7-18 mg/dl Creatinine 0.98 0.60-1.40 mg/dl Est Creatinine Clear Calc Drug Dose 94.1 ml/min Estimated GFR () 93.4 Estimated GFR (Non- 80.6 BUN/Creatinine Ratio 22.3 10-20 Random Glucose 90 70-99 mg/dl Calcium Level 8.5 8.5-10.1 mg/dl Magnesium Level 2.3 1.8-2.4 mg/dl Total Bilirubin 2.3 0.2-1 mg/dl Direct Bilirubin 0.4 0-0.2 mg/dl Aspartate Amino Transf (AST/SGOT) 43 15-37 U/L Alanine Aminotransferase (ALT/SGPT) 82 12-78 U/L Alkaline Phosphatase 82 45-117 U/L Total Creatine Kinase 40 39-308 U/L Creatine Kinase MB 0.9 0.5-3.6 ng/ml Creatine Kinase MB Ratio 2.3 0-3.0 Troponin I 0.046 0-0.045 ng/ml Total Protein 6.5 6.4-8.2 gm/dl Albumin 3.3 3.4-5.0 gm/dl Thyroid Stimulating Hormone (TSH) 1.010 0.300-4.500 uIu/ml Diagnostic Radiology CTA - no PE, dissection - questionable LLL infiltrate vs atelectasis Normal EKG Impression Assessment and Plan 67 y/o M Hx HTN, HPL, CAD - underwent 3 vessel CABG 12/02/17 - post-op course complicated by a R pneumothorax and post-op AF. The pt since discharge states that he has felt increasingly weak, c/o a fluttering sensation in his chest and is SOB with exertion. He does not c/o CP, a productive cough, N/V, diarrhea, dysuria or fevers. He was at [place] earlier in the day and underwent a CTA to assess for PE and dissection, neither of which were present. There was some concern for a LLL infiltrate, although the reading was hedged with the option of atelectasis. The pt was evaluated by cardiology in the ER and is admitted due to suspicion of new-onset CHF. 1) Exertional dyspnea, fatigue - suspected due o CHF - Cardiology is consulted and an echo is pending for AM. I/Os, daily weights requested. Pt provided with 20mg Lasix in ER - will cont 20mg daily for now. Elevated LFTs may support diagnosis. 2) Palpitations - continues to c/o fluttering sensation despite entirely normal rhythm on EKG and monitor - we will monitor on tele as he does have a history of post-op AF - cont B breanna. 3) CAD - troponin elevation is present, however, this is likely residual - we will trend - cont Statin, B breanna, ASA. 4) LFTs are slightly elevated - this may be the effect of surgery or passive congestion due to CHF - there is cholelithiasis on CT although he does not have any abdominal pain. Would explore GI etiology if there is an upward trend or related clinical signs. 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 Y/N: Yes Risk Level: Moderate Given or contraindicated: Unfractionated heparin SQ
[2017-12-11] MEDS ORDERED: IV FLUIDS COMPLETED PRN (19:00)
[2017-12-11 20:00] VITALS: BP 148/76; PULSE 89; TEMP 36.7; O2SAT 98; Ht 182.9 cm; Wt 103.1 kg
--- NOTE | 2017-12-11 20:25 | EMERGENCY ROOM VISIT NOTE ---
History Report prepared by Sudhir: Shane Porter Under the Supervision of: Dr. Duncan Vang M.D. First contact with patient: 16:07 Chief Complaint: SHORTNESS OF BREATH Stated Complaint: SOB Nursing Triage Summary: Had triple bypass last week. Discharged two days ago. Has had increasing SOB. Throbbing the whole way across chest going up into head. No cough or fever. History of Present Illness The patient is a 67 year old male who presents to the Emergency Room with complaints of worsening chest pain and shortness of breath that the patient began to experience two days ago. He describes his chest pain as a "throbbing." The patient's symptoms began shortly after being discharged from [facility] following a Triple Bypass surgery last week. The patient mentioned multiple occurrences during his time at [place] upset him. He noted that his lung collapsed and he had a breathing tube placed. The tube broke at one point, and he was stuck with air leaking for a prolonged time. The patient also went into Atrial Fibrillation following the surgery. He mentioned the shortness of breath and chest pain before discharge, but they did nothing about it. He went to the [place] emergency department this morning and had blood work and a chest CT performed which were unremarkable as far as the patient knows. He claims that the oxygen he received en route to [place]. [place] ED suggested that the patient go back to [place], but he does not want to go back. The patient notes that he was very restless last night and could not sleep. He thinks that he was experiencing some atrial flutter again last night. Pt denies LOC, headache, fevers, chills, diaphoresis, visual changes, neck pain, nausea, vomiting, abdominal pain, back pain, melena, hematochezia, urinary symptoms, numbness, weakness, lymphadenopathy, rash, or other complaints. 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 A total of ten systems were reviewed and were otherwise negative. Past Medical & Surgical Medical Problems: (1) Acute CHF (2) Chest pain (3) Coron Atheroscler Nos Type Vessel, Mcgrath Or Graft (4) Heart palpitations (5) Hypertension Nos (6) No pertinent past medical history (7) Pure Hypercholesterolem Surgical Problems: (1) History of cardiac catheterization (2) Presence of stent in LAD coronary artery Family History Patient reports no known family medical history. Social History Smoking Status: Never Smoker Marital Status: Housing Status: lives with family Occupation Status: employed Current/Historical Medications Scheduled Amlodipine (Norvasc), 5 MG PO DAILY Aspirin (Aspirin EC Low Dose), 81 MG PO QAM Atorvastatin (Lipitor), 80 MG PO QAM Citalopram Hydrobromide (Citalopram Hydrobromide), 1 TAB PO DAILY Metoprolol Tartrate (Lopressor), 25 MG PO BID Nitroglycerin (Nitrostat), 0.4 MG UT PRN Ranolazine (Ranexa), 1,000 MG PO BID Scheduled PRN Lorazepam (Lorazepam), 0.5 MG PO Q6 PRN for Anxiety Oxycodone HCl (Oxycodone HCl), 5 MG PO Q8 PRN for Pain Allergies Coded Allergies: Lisinopril (Unverified Allergy, Unknown, unknown, 12/11/17) Loratadine (Unverified Allergy, Unknown, unknown, 12/11/17) Physical Exam Vital Signs Date Time Temp Pulse Resp B/P (MAP) Pulse Ox O2 Delivery O2 Flow Rate FiO2 12/11/17 18:18 70 18 124/63 98 Room Air 12/11/17 17:06 98 Room Air 12/11/17 17:04 72 12/11/17 15:54 36.7 80 20 111/73 96 Room Air Physical Exam GENERAL: Awake, alert, well-appearing, in no distress HENT: Normocephalic, atraumatic. Oropharynx unremarkable. EYES: Normal conjunctiva. Sclera non-icteric. NECK: Supple. No nuchal rigidity. FROM. No JVD. RESPIRATORY: Clear to auscultation. CARDIAC: Regular rate, normal rhythm. Extremities warm and well perfused. Pulses equal. ABDOMEN: There is a midline incision that looks well. Soft, non-distended. No tenderness to palpation. No rebound or guarding. No masses. RECTAL: Deferred. MUSCULOSKELETAL: Chest examination reveals no tenderness. The back is symmetrical on inspection without obvious abnormality. There is no CVA tenderness to palpation. No joint edema. LOWER EXTREMITIES: Calves are equal size bilaterally and non-tender. No edema. There is ecchymosis present across the left calf. 1+ edema bilaterally. NEURO: Normal sensorium. No sensory or motor deficits noted. SKIN: No rash or jaundice noted. Medical Decision & Procedures Laboratory Results 12/11/17 17:03 Red Blood Count 2.90, Mean Corpuscular Volume 95.9, Mean Corpuscular Hemoglobin 31.7, Mean Corpuscular Hemoglobin Concent 33.1, Mean Platelet Volume 9.5, Neutrophils (%) (Auto) 69.7, Lymphocytes (%) (Auto) 18.2, Monocytes (%) (Auto) 8.9, Eosinophils (%) (Auto) 2.7, Basophils (%) (Auto) 0.3, Neutrophils # (Auto) 4.09, Lymphocytes # (Auto) 1.07, Monocytes # (Auto) 0.52, Eosinophils # (Auto) 0.16, Basophils # (Auto) 0.02 12/11/17 17:03 Test 12/11/17 17:03 12/11/17 18:13 White Blood Count 5.87 K/uL (4.8-10.8) Red Blood Count 2.90 M/uL (4.7-6.1) Hemoglobin 9.2 g/dL (14.0-18.0) Hematocrit 27.8 % (42-52) Mean Corpuscular Volume 95.9 fL (80-100) Mean Corpuscular Hemoglobin 31.7 pg (25-34) Mean Corpuscular Hemoglobin Concent 33.1 g/dl (32-36) Platelet Count 235 K/uL (130-400) Mean Platelet Volume 9.5 fL (7.4-10.4) Neutrophils (%) (Auto) 69.7 % Lymphocytes (%) (Auto) 18.2 % Monocytes (%) (Auto) 8.9 % Eosinophils (%) (Auto) 2.7 % Basophils (%) (Auto) 0.3 % Neutrophils # (Auto) 4.09 K/uL (1.4-6.5) Lymphocytes # (Auto) 1.07 K/uL (1.2-3.4) Monocytes # (Auto) 0.52 K/uL (0.11-0.59) Eosinophils # (Auto) 0.16 K/uL (0-0.5) Basophils # (Auto) 0.02 K/uL (0-0.2) RDW Standard Deviation 52.0 fL (36.4-46.3) RDW Coefficient of Variation 16.5 % (11.5-14.5) Immature Granulocyte % (Auto) 0.2 % Immature Granulocyte # (Auto) 0.01 K/uL (0.00-0.02) Prothrombin Time 10.5 SECONDS (9.0-12.0) Prothromb Time International Ratio 1.0 (0.9-1.1) Activated Partial Thromboplast Time 25.6 SECONDS (21.0-31.0) Partial Thromboplastin Ratio 1.0 Anion Gap 5.0 mmol/L (3-11) Est Creatinine Clear Calc Drug Dose 94.1 ml/min Estimated GFR () 93.4 Estimated GFR (Non- 80.6 BUN/Creatinine Ratio 22.3 (10-20) Calcium Level 8.5 mg/dl (8.5-10.1) Magnesium Level 2.3 mg/dl (1.8-2.4) Total Bilirubin 2.3 mg/dl (0.2-1) Direct Bilirubin 0.4 mg/dl (0-0.2) Aspartate Amino Transf (AST/SGOT) 43 U/L (15-37) Alanine Aminotransferase (ALT/SGPT) 82 U/L (12-78) Alkaline Phosphatase 82 U/L (45-117) Total Creatine Kinase 40 U/L (39-308) Creatine Kinase MB 0.9 ng/ml (0.5-3.6) Creatine Kinase MB Ratio 2.3 (0-3.0) Troponin I 0.046 ng/ml (0-0.045) Total Protein 6.5 gm/dl (6.4-8.2) Albumin 3.3 gm/dl (3.4-5.0) Thyroid Stimulating Hormone (TSH) 1.010 uIu/ml (0.300-4.500) Urine Color YELLOW Urine Appearance CLEAR (CLEAR) Urine pH 8.0 (4.5-7.5) Urine Specific [place] 1.030 (1.000-1.030) Urine Protein NEG (NEG) Urine Glucose (UA) NEG (NEG) Urine Ketones NEG (NEG) Urine Occult Blood NEG (NEG) Urine Nitrite NEG (NEG) Urine Bilirubin NEG (NEG) Urine Urobilinogen POS (NEG) Urine Leukocyte Esterase NEG (NEG) Laboratory results reviewed by me Medications Administered Medications (Trade) Dose Ordered Sig/Joe Route Start Time Stop Time Status Last Admin Dose Admin Furosemide (Lasix Inj) 20 mg NOW STAT IV 12/11/17 17:30 12/11/17 17:31 DC 12/11/17 18:17 20 MG ECG Indication: chest pain, SOB/dyspnea Rate (beats per minute): 81 Rhythm: normal sinus Findings: no acute ischemic change, no ectopy Change: Patient's electrocardiogram was interpreted by me. ED Course 162: The patient was evaluated in room C2B. A complete history and physical exam was performed. 1726: Dr. Bernard - Cardiology has evaluated the patient at this time. He requested that we ordered 20 mg of Lasix IV. 1730: Ordered Lasix 20 mg IV. 1803: I discussed the results of the case with the patient at this time. He is agreeable to admission. 1816: I discussed the case with Dr. Merchant - [facility] Hospitalist. He has spoke with Dr. Bernard. He will evaluate the patient for further treatment. Medical Decision Prior records/ancillary studies reviewed and summarized above.Reviewed from his hospital visit earlier today. The patient had unremarkable laboratory studies. He study performed and question some atelectasis versus subtle infiltrate. These were radiology reports and actual imaging was not available. Nursing notes reviewed and agree them. Additional history obtained from family. The patient's history was concerning for postoperative shortness of breath and chest pain Differential diagnosis: Etiologies such as metabolic, infection, hypo/hyperglycemia, electrolyte abnormalities, cardiac sources, intracerebral event, toxicologic, neurologic, as well as others were entertained. Physical examination: As above. ER treatment provided: IV Lock IV Lasix On reassessment the patient felt better. Diagnostics interpretation by me: ECG: No acute ischemia. The labs revealed a mild anemia on CBC. Chemistry panel revealed mild elevation of LFTs. Troponin minimally elevated. Urinalysis unremarkable Imaging studies: Due to imaging done prior to Emergency Room visit. Consultation: The patient was evaluated by Dr. Bernard of cardiology. He was aware of the patient's condition. He did consult on the patient and recommended admission for telemetry, IV Lasix, and echocardiogram. A consultation was placed with the hospitalist. The case was discussed and diagnostics were reviewed. The patient was evaluated in the ER for further treatment. Blood Pressure Screening Patient's blood pressure: Normal blood pressure Consults Time Called: 1719 Consulting Physician: Dr. Bernard - Cardiology Returned Call: 1725 Dr. Bernard - Cardiology has evaluated the patient at this time. He requested that we ordered 20 mg of Lasix IV. Additional Consults: Time Called: 1815 Consulted Physician: Dr. Shonda EDGAR Hospitalist Returned Call: 1815 Additional Comments: I discussed the case with Dr. Shonda EDGAR Hospitalist. He has spoke with Dr. Bernard. He will evaluate the patient for further treatment. Impression Primary Impression: Palpitations Additional Impressions: SOB (shortness of breath) Elevated troponin Scribe Attestation The scribe's documentation has been prepared under my direction and personally reviewed by me in its entirety. I confirm that the note above accurately reflects all work, treatment, procedures, and medical decision making performed by me. Departure Information Dispostion Being Evaluated By Hospitalist Referrals Myles Rushing M.D. (PCP) Patient Instructions My [facility] Problem Qualifiers
[2017-12-11] MEDS: HEPARIN SOD 5000 UNIT/0.5 ML CARP SQ SCH (21:13)
[2017-12-11] MEDS: RANOLAZINE 500 MG ER TAB PO SCH (21:15)
[2017-12-11] MEDS: METOPROLOL TARTRATE 25 MG TAB PO SCH (21:15)
[2017-12-11] MEDS ORDERED: FUROSEMIDE INJ 20 MG in SYRINGE 0 ML IV ONE (22:00)
[2017-12-11] MEDS ORDERED: NURSING VERBAL MED ORDER ONE (22:30)
[2017-12-12] VITALS (7 sets, daily range): BP systolic 97–114; BP diastolic 58–67; PULSE 67–73; TEMP 36.4–36.8; O2SAT 96–98
[2017-12-12] MEDS: HEPARIN SOD 5000 UNIT/0.5 ML CARP SQ SCH (05:50)
[2017-12-12 07:10] LABS: CREATININE 1.13 mg/dl (0.60-1.40)
[2017-12-12 07:15] LABS: TOTAL PROTEIN 6.4 gm/dl (6.4-8.2)
[2017-12-12] MEDS: RANOLAZINE 500 MG ER TAB PO SCH (08:08)
[2017-12-12] MEDS: METOPROLOL TARTRATE 25 MG TAB PO SCH (08:09)
--- NOTE | 2017-12-12 08:26 | DIAGNOSTIC IMAGING REPORT ---
SINGLE VIEW CHEST CLINICAL HISTORY: Congestive heart failure.. FINDINGS: An AP, portable, upright chest radiograph is compared to study dated 10/09/2015. The examination is degraded by portable technique and patient rotation. The patient is status post midline sternotomy. The heart is mildly enlarged and there is atherosclerotic calcification of the thoracic aorta. The pulmonary vasculature is noncongested. There is left basilar consolidation and a small left pleural effusion. The right lung appears clear. There is no pneumothorax. The skeletal structures are osteopenic. Degenerative change and scoliosis are noted in the thoracic spine. IMPRESSION: 1. Cardiomegaly without radiographic evidence of congestive failure. 2. There is left basilar consolidation and a small left pleural effusion. Correlate clinically for evidence of pneumonia. Electronically signed by: Myles Hernandez M.D. 12/12/2017 8:25 AM Dictated Date/Time: 12/12/2017 8:23 AM
[2017-12-12] MEDS ORDERED: AMLODIPINE BESYLATE 5 MG TAB PO SCH (09:00)
[2017-12-12] MEDS ORDERED: ATORVASTATIN 40 MG TAB PO SCH (09:00)
[2017-12-12] MEDS ORDERED: ASPIRIN 81 MG ECTAB PO SCH (09:00)
[2017-12-12] MEDS ORDERED: FUROSEMIDE 20 MG TAB PO SCH (09:00)
[2017-12-12] MEDS ORDERED: POTASSIUM CHLORIDE 10 MEQ TABCR PO SCH (09:00)
[2017-12-12] MEDS ORDERED: CITALOPRAM 20 MG TAB PO SCH ×2 (09:00→21:00)
--- NOTE | 2017-12-12 09:53 | CARDIOLOGY PROGRESS NOTE ---
DATE: 12/12/2017 TIME: 9:19 a.m. SUBJECTIVE: He denies chest pain, syncope, near syncope, or palpitations. His breathing is much improved. In fact, he walked 6 laps around the nursing station, total 3 laps at a time and tolerated it quite well. He stated that he was tired afterwards but much improved from prior to his presentation. Not all of his urine has been collected and calculated as he did void in the Emergency Department, but otherwise he states that he is voiding quite often and even with some of his urine output missing in the calculations, he is still negative, approximately 900 mL overnight. He would like to go home. OBJECTIVE: VITAL SIGNS: Temperature 36.8 degrees, heart rate 73 beats per minute, respiration rate 16, blood pressure 114/67 mmHg, oxygen saturation is 98% on room air. I's and O's negative approximately 900 thus far, but he has also urinated significantly this morning and this has not yet been calculated. His weight is down to 103.1 kilograms. He weighed 104.3 kilograms on presentation. GENERAL: No acute distress. He is alert. NECK: No JVD. There is no hepatojugular reflux, which is an improvement. CARDIAC: No ventricular heave. Regular, normal S1, S2. There were no audible murmurs, rubs or gallops. LUNGS: Clear to auscultation bilaterally without wheezes, rales or rhonchi. ABDOMEN: Soft, nontender, nondistended. Normoactive bowel sounds. EXTREMITIES: Trace bilateral lower extremity edema, improved from presentation. No cyanosis. PSYCHIATRIC: Affect appears appropriate. MEDICATIONS: Include aspirin 81 mg daily, amlodipine 5 mg daily, atorvastatin 80 mg daily, Lasix 20 mg p.o. daily and he received 20 mg IV x2 overnight, heparin 5,000 units subQ q. 8 hours, metoprolol tartrate 25 mg p.o. b.i.d., and potassium chloride 10 mEq daily. LABORATORY DATA: White blood cell count 5.7, hemoglobin 9, and platelets 235. Sodium 137, potassium 4, BUN 23, creatinine 1.13. AST 41, ALT 76, total bilirubin 2.3. Troponin peak was 0.046 and has since trended downward. Albumin 3, TSH 1.01. IMAGING DATA: Chest x-ray image personally reviewed from this morning. There is a left base opacity. Radiology has reported left basilar consolidation and small left pleural effusion. No evidence of CHF. Echocardiogram images personally reviewed. Upon preliminary review from echo 12/12/2017, LV systolic function is normal. There are no regional wall motion abnormalities. Septal motion was consistent with post-cardiac surgery. There were no significant valvular abnormalities visualized. Final report to follow after formal review and measurements. Telemetry personally reviewed. No arrhythmia. ECG 12/11/2017 demonstrated sinus rhythm at 71 beats per minute, normal ECG. ASSESSMENT AND PLAN: 1. Acute diastolic congestive heart failure: He was hypervolemic and feels much better after diuresis. We discussed the importance of a low sodium diet, less than 2000 mg daily. Recommended that he weigh himself on a daily basis. Call the office for worsening shortness of breath, edema or weight gain. Continue Lasix 20 mg p.o. on a daily basis. He can take an additional 20 mg for weight gain, shortness of breath or worsening edema. Heart failure protocol has been activated and recommend that he follow up in the office within the next 7 days. This appointment is being made for him currently. He currently appears euvolemic. 2. Coronary artery disease status post coronary artery bypass graft x3: No angina. He also has a mid left anterior descending coronary artery stent. Continue aspirin 81 mg daily. Continue high intensity statin therapy as well as beta breanna. His minimally elevated troponins are not diagnostic of myocardial infarction and he did not present with angina. Could be secondary to recent cardiac surgery. 3. Hypertension: Blood pressure well controlled. Continue home medications. 4. Disposition: From a cardiology standpoint, he can be discharged home. The patient's care has been discussed with Dr. Perry. Close follow up in the cardiology clinic as noted above, which is being arranged for him. Forty minutes spent, with greater than 50% of that time spent counseling the patient and coordinating care as well as reviewing images, as noted above.
[2017-12-12] MEDS ORDERED: POTA10CA28 PO (13:33)
[2017-12-12] MEDS ORDERED: LSX20 PO (13:33)
--- NOTE | 2017-12-12 13:47 | Discharge Instructions ---
Discharge Instructions Date of Service Dec 12, 2017. Admission Reason for Admission: Acute Chf, Heart Palpitations Discharge Discharge Diagnosis / Problem: Acute diastolic congestive heart failure Discharge Goals Goal(s): Decrease discomfort, Improve function, Diagnostic testing, Therapeutic intervention Activity Recommendations Activity Limitations: resume your previous activity (as tolerated) . Instructions / Follow-Up Instructions / Follow-Up You were admitted to the hospital for overnight observation after presenting with shortness of breath. You were found to be in acute diastolic congestive heart failure, which appears to be a new diagnosis. You were treated with diuretics which did help to resolve your symptoms. You were evaluated by cardiology who recommended that you be maintained on a low daily dose of Lasix, a type of diuretic. You will follow up with cardiology next week regarding this. Medications: *Please take furosemide (Lasix) 20 mg by mouth daily. This is a diuretic to keep excess fluid off. *Please take potassium chloride 10 mEq by mouth daily, as the above diuretic will lower your potassium levels. *You may discontinue Ranexa per cardiology recommendations due to your recent bypass surgery. *Continue your other home medications as prescribed. Recommendations: *Please weigh yourself daily in the morning. If you notice a 2-3 pound weight gain in 1 day, you can take an extra dose of Lasix. *Please restrict your daily sodium intake to 2000 mg a day. Follow up: *Dr. Rushing's office will contact you regarding a follow up appointment. *You have been scheduled for a follow up appointment with Brigid Best PA-C of cardiology on December 19 at 2:45 pm. Please seek medical attention if you experience fevers, chills, sweats, dizziness/lightheadedness, loss of consciousness, chest pain, shortness of breath, nausea, vomiting, numbness or tingling. Call your Primary Care doctor if any of the following symptoms or problems start or get worse: * Shortness of breath or difficulty breathing * Wake up at night short of breath * Chest pain * Cough * Swelling of your hands, feet, or legs * More fatigued or tired with your normal activity * Palpitations - sudden fast heart beats WEIGHT * Weigh yourself every morning after using the bathroom. * Use the same scale. * Wear the same amount of clothing. * Write your weight down on a chart. * Call your Primary Care doctor if you gain more than 2-3 pounds in 1-2 days. MEDICATIONS * Use this discharge instruction sheet for medication instructions. * Take your medications at the time your doctor ordered. * Do not skip a dose of your medicines. * If you miss a dose of medicine, take it as soon as possible. * Read your medicine information when you get home. * Know all of the side effects of your medicine. If in doubt, ask your pharmacist * Call your Primary Care doctor's office if you have any side effects. * Be sure all of your doctors know what medicine and herbs you take (including cold, flu, and herbal medicine). Take the following with you to your follow-up doctor appointments: * Weight Chart * Medication List * List of questions Do not drink excessive alcohol, beer or wine. Current Hospital Diet Patient's current hospital diet: AHA Diet (Heart Healthy) Discharge Diet Recommended Diet: AHA Diet (Heart Healthy), Low Sodium Diet (2gm Na) Pending Studies Studies pending at discharge: no Medical Emergencies . Who to Call and When: Call 911 or go to the Emergency Room if: * If at any time you feel your situation is an emergency * You have tightness or pain in your chest that does not go away with rest or Nitroglycerin * You are very short of breath even with rest . Non-Emergent Contact Non-Emergency issues call your: Primary Care Provider, Outside Plant Engineer Call Non-Emergent contact if: you have a fever, you have any medication questions . Past History Medical & Surgical History: (1) Acute CHF . "Provider Documentation" section prepared by Caro Steele. . VTE Core Measure Inpt VTE Proph given/why not?: Unfractionated heparin SQ
--- NOTE | 2017-12-12 13:59 | Discharge Summary ---
Discharge Summary Date of Service Dec 12, 2017. Discharge Summary Admission Date: Dec 11, 2017 at 18:27 Discharge Date: Dec 12, 2017 Discharge Disposition: Home Principal Diagnosis: Acute diastolic CHF Problems/Secondary Diagnoses: (1) Coron Atheroscler Nos Type Vessel, [place] Or Graft Status: Chronic (2) History of cardiac catheterization Status: Chronic (3) Hypertension Nos Status: Chronic (4) Presence of stent in LAD coronary artery Status: Chronic (5) Pure Hypercholesterolem Status: Chronic Procedures: SINGLE VIEW CHEST CLINICAL HISTORY: Congestive heart failure.. FINDINGS: An AP, portable, upright chest radiograph is compared to study dated 10/09/2015. The examination is degraded by portable technique and patient rotation. The patient is status post midline sternotomy. The heart is mildly enlarged and there is atherosclerotic calcification of the thoracic aorta. The pulmonary vasculature is noncongested. There is left basilar consolidation and a small left pleural effusion. The right lung appears clear. There is no pneumothorax. The skeletal structures are osteopenic. Degenerative change and scoliosis are noted in the thoracic spine. IMPRESSION: 1. Cardiomegaly without radiographic evidence of congestive failure. 2. There is left basilar consolidation and a small left pleural effusion. Correlate clinically for evidence of pneumonia. Consultations: Cardiology Medication Reconciliation New Medications: Furosemide (Furosemide) 20 Mg Tab 20 MG PO QAM for 30 Days, #30 TAB Potassium Chloride (Micro-K Ext Rel) 10 Meq Capcr 10 MEQ PO DAILY for 30 Days, #30 CAP Continued Medications: Amlodipine (Norvasc) 5 Mg Tab 5 MG PO DAILY for 30 Days, #30 TAB Aspirin (Aspirin EC Low Dose) 81 Mg Ectab 81 MG PO QAM for 60 Days Atorvastatin (Lipitor) 40 Mg Tab 80 MG PO QAM for 60 Days, TAB Citalopram Hydrobromide (Citalopram Hydrobromide) 10 Mg Tab 1 TAB PO DAILY for 30 Days, #30 TAB 3 Refills Lorazepam (Lorazepam) 0.5 Mg Tab 0.5 MG PO Q6 PRN for Anxiety Metoprolol Tartrate (Lopressor) 25 Mg Tab 25 MG PO BID Nitroglycerin (Nitrostat) 0.4 Mg Tab 0.4 MG UT PRN, BTL Oxycodone HCl (Oxycodone HCl) 5 Mg Tab 5 MG PO Q8 PRN for Pain Discontinued Medications: Ranolazine (Ranexa) 500 Mg Tab 1000 MG PO BID for 30 Days, #120 TAB 3 Refills Discharge Exam Patient reports feeling well. He denies any shortness of breath. He states he does not feel as weak/fatigued as when he came in. His lower extremity edema is also improved. The patient denies fevers, chills, sweats, chest pain, palpitations, claudication, cough, wheezing, shortness of breath, nausea, vomiting, abdominal pain, dysuria, hematuria, urinary retention, paralysis, weakness, numbness and tingling. Constitutional: No fever, No chills, No sweats Eyes: No worsening of vision, No eye pain, No diplopia ENT: No hearing loss, No nasal symptoms, No trouble swallowing Respiratory: No cough, No wheezing, No shortness of breath Cardiovascular: No chest pain, No claudication, No palpitations Abdomen: No pain, No nausea, No vomiting Musculoskeletal: No joint pain, No muscle pain, No swelling Genitourinary - Male: No dysuria, No urinary retention, No hematuria Neurologic: No paralysis, No weakness, No numbness/tingling Integumentary: No rash, No itch, No color change General appearance: +Obese. Well-developed, well-nourished, no apparent distress Head: Normocephalic, atraumatic Eyes: Normal inspection, PERRL, EOMI ENT: Normal ENT inspection, hearing grossly normal, pharynx normal Neck: Supple, no JVD, trachea midline Respiratory/Chest: +Decreased breath sounds in bases. Large sternotomy scar, appears to be healing well. Lungs clear to auscultation, no respiratory distress Cardiovascular: Regular rate & rhythm, no gallop, no murmur Abdomen/GI: Normal bowel sounds, non-tender, soft Extremities/Musculoskeletal: +Trace pitting edema. Normal inspection, no calf tenderness Neurological/Psych: Alert, normal mood/affect, oriented x 3 Skin: Normal color, warm/dry, no rash Hospital Course 67 y/o male with a history of CAD s/p stent in 2014 and CABG x 3 12/02/17, HTN, HLD, anxiety/depression who presents with weakness, palpitations and dyspnea on exertion. Pt had triple bypass [place] [facility] that was complicated with postop right pneumothorax and postop atrial fibrillation. He was just discharged 12/09 but had been feeling fatigued since then. Despite complaints of palpitations, no evidence of re-occurrence of a-fib. Acute diastolic CHF, new diagnosis--improving/resolving -Admit to tele for observation. No acute events overnight, pt remained in sinus rhythm with HR 60s-90s -Given IV Lasix in ED with relief -Cardiology consulted, appreciate recs: Acute diastolic CHF. Recommend low sodium diet. Continue aspirin, statin, beta breanna. Can discontinue Ranexa as patient already had revascularization. Recommend discharging home with Lasix 20 mg daily and close follow up outpatient. Can follow up on echo results. -Echo completed, cardio can follow up on results next week -D/C with Lasix 20 mg PO qd, KCl 10 mEq PO qd -Discussed with pt low sodium diet, daily weights and about taking extra Lasix if needed if there is sudden weight gain -LFTs stable -CXR obtained after IV diuresis, now no evidence of CHF Elevated troponin--resolved -Initial trop very mildly elevated on admission at 0.046, trending down and now WNL -EKG no acute ischemic changes CAD, HTN, HLD--stable -Continue ASA, Norvasc 5, Lopressor 25 mg PO BID, Lipitor 80 mg PO qd Anxiety/depression -Continue Celexa 10 mg PO qd, Ativan prn DVT prophylaxis -Heparin 5000 units SC q8h Code Status -Level I, FULL RESUSCITATION STATUS PA Physician Supervision Note: I interviewed and examined the patient. Discussed with Caro FRANCO and agree with findings and plan as documented in the note. Any exceptions or clarifications are listed here: None Patient was admitted with concern for palpitations and mild diastolic heart failure after a CABG this to be acute diastolic heart failure. Patient had good diuresis with a very small dose of Lasix 20 he remains in normal sinus rhythm despite his history of postoperative atrial fibrillation. He was seen by cardiology and felt stable to discharge. Vital signs showed temperature 36 8 pulse 73 rest per 16 BP 114/76 and 90% in room air his exam shows him to sound irregular there are no murmurs his lungs have decreased breath sounds at the left base no rales his extremities are with trace edema Patient will be discharged home on Lasix once a day with heart failure instructions and a follow-up in 1 week with cardiac clinic Documented By: Davie Perry Total Time Spent: Greater than 30 minutes This includes examination of the patient, discharge planning, medication reconciliation, and communication with other providers. Discharge Instructions Please refer to the electronic Patient Visit Report (Discharge Instructions) for additional information. Additional Copies To Myles Rushing M.D.
--- NOTE | 2017-12-12 20:46 | ECHOCARDIOGRAM REPORT ---
*NOTICE TO RECEIVING CONSTITUTION PARTY AGENCY This information is strictly Confidential and protected under [place] law. [place] law prohibits you from making any further disclosure of this information unless further disclosure is expressly permitted by the written consent of the person to whom it pertains or is authorized by law. A general authorization for the release of medical or other information is not sufficient for this purpose. Hospital accepts no responsibility if the information is made available to any other person, INCLUDING THE PATIENT. Interpretation Summary * Name: WANDY FISCHER Study Date: 12/12/2017 07:16 AM BP: 97/58 mmHg * Patient Location: .MED\S\N280\S\2 HR: 67 * : 1950 (M/d/yyyy) Gender: Male Height: 72 in * Age: 67 yrs Ethnicity: [place] Weight: 231 lb * Ordering Physician: Percy Bernard * Referring Physician: Self, Referred * Performed By: Monica Leblanc RDCS * * Reason For Study: SOB * BSA: 2.3 m2 * -- Conclusions -- * 1. Normal left ventricular size and systolic function. EF 60-65%. No regional wall motion abnormalities. Septal motion consistent with cardiac surgery. Mild concentric left ventricular hypertrophy. Type 2 diastolic dysfunction. * 2. Mildly reduced right ventricular systolic function. * 3. No significant valvular abnormalities visualized. * 4. Technically difficult study, enhanced with IV Definity. Procedure Details * A complete two-dimensional transthoracic echocardiogram was performed (2D, M-mode, Doppler and color flow Doppler). * A contrast injection of Definity was performed to improve assessment of LV function. * Contrast was injected into an intravenous site in the right arm. * One vial of Definity ultrasound contrast was diluted in normal saline to a total volume of 10 ml. A total of '2' ml of solution was administered during imaging. * Lot # [id number] of Definity utilized for procedure. * Expiration date DEC 05. * The attending nurse who injected the contrast agent was Tatum Umana RN. Left Ventricle * Normal left ventricular size and systolic function. EF 60-65%. No regional wall motion abnormalities. Septal motion consistent with cardiac surgery. Mild concentric left ventricular hypertrophy. Type 2 diastolic dysfunction. Right Ventricle * The right ventricle is grossly normal size. * Mildly reduced right ventricular systolic function. * The right ventricular systolic function is reduced as assessed by tricuspid annular plane systolic excursion (TAPSE) (TAPSE <1.6 cm). Atria * The left atrial size is normal. * Right atrial size is normal. * There is no evidence of atrial septal defect, but resolution does not allow assessment for a patent foramen ovale. Mitral Valve * The mitral valve is grossly normal. * There is no mitral valve stenosis. * There is trace mitral regurgitation. Tricuspid Valve * The tricuspid valve is not well visualized, but is grossly normal. * There is no tricuspid stenosis. * Significant tricuspid regurgitation is absent. Aortic Valve * The aortic valve is trileaflet. * No hemodynamically significant valvular aortic stenosis. * No aortic regurgitation is present. Pulmonic Valve * The pulmonary valve is inadequately visualized, but the Doppler data is adequate for interpretation. * There is no pulmonic valvular stenosis. * There is no significant pulmonary regurgitation. Great Vessels * The aortic root is normal size. * Ascending aorta of normal dimension Pericardium/Pleural * There is no pericardial effusion. Great Vessels * Normal inferior vena cava size and collapsability with sniff indicates a normal right atrial pressure of 3 mmHg MMode 2D Measurements and Calculations IVSd 1.3 cm LVIDd 3.8 cm LVIDs 2.6 cm LVPWd 1.2 cm IVS/LVPW 1.1 FS 33.0 % EDV(Teich) 63.3 ml ESV(Teich) 23.9 ml EF(Teich) 62.3 % EDV(cubed) 56.4 ml ESV(cubed) 16.9 ml EF(cubed) 70.0 % LV mass(C)d 157.2 grams LV mass(C)dI 69.4 grams/m\S\2 SV(Teich) 39.4 ml SI(Teich) 17.4 ml/m\S\2 SV(cubed) 39.4 ml SI(cubed) 17.4 ml/m\S\2 Ao root diam 3.3 cm Ao root area 8.4 cm\S\2 ACS 2.2 cm LA dimension 3.2 cm asc Aorta Diam 2.6 cm LA/Ao 0.98 LVOT diam 2.0 cm LVOT area 3.1 cm\S\2 LVAd ap4 31.8 cm\S\2 LVLd ap4 7.9 cm EDV(MOD-sp4) 103.1 ml EDV(sp4-el) 107.8 ml LVAs ap4 17.1 cm\S\2 LVLs ap4 6.4 cm ESV(MOD-sp4) 37.7 ml ESV(sp4-el) 39.0 ml EF(MOD-sp4) 63.4 % EF(sp4-el) 63.9 % LVAd ap2 33.2 cm\S\2 LVLd ap2 7.6 cm EDV(MOD-sp2) 116.2 ml EDV(sp2-el) 122.9 ml LVAs ap2 18.6 cm\S\2 LVLs ap2 5.9 cm ESV(MOD-sp2) 46.8 ml ESV(sp2-el) 49.4 ml EF(MOD-sp2) 59.8 % EF(sp2-el) 59.8 % LVLd %diff -4.38 % EDV(MOD-bp) 111.1 ml LVLs %diff -7.10 % ESV(MOD-bp) 42.7 ml EF(MOD-bp) 61.6 % SV(MOD-sp4) 65.3 ml SI(MOD-sp4) 28.8 ml/m\S\2 SV(MOD-sp2) 69.5 ml SI(MOD-sp2) 30.7 ml/m\S\2 SV(MOD-bp) 68.5 ml SI(MOD-bp) 30.2 ml/m\S\2 SV(sp4-el) 68.9 ml SI(sp4-el) 30.4 ml/m\S\2 SV(sp2-el) 73.5 ml SI(sp2-el) 32.4 ml/m\S\2 Doppler Measurements and Calculations MV E max hudson 88.8 cm/sec MV A max hudson 71.8 cm/sec MV E/A 1.2 MV dec time 0.22 sec Ao V2 max 117.3 cm/sec Ao max PG 5.5 mmHg Ao max PG (full) 1.7 mmHg KARENA(V,A) 2.6 cm\S\2 KARENA(V,D) 2.6 cm\S\2 LV V1 max PG 3.8 mmHg LV V1 max 98.0 cm/sec PA V2 max 164.2 cm/sec PA max PG 10.8 mmHg PA acc slope 398.4 cm/sec\S\2 PA acc time 0.13 sec RAP systole 3.0 mmHg PA pr(Accel) 20.4 mmHg
== END 2017-12-12 15:30 | disposition home or self-care (01) ==
LOC: C.EDB 15:48 → C.MED 18:27 → ENRESERV 19:04
PROVIDERS: ADMIT Internal Medicine; ATTEND Internal Medicine
DX: I50.31 Acute diastolic (congestive) heart failure (principal); I25.10 Atherosclerotic heart disease of native coronary artery without angina pectoris; I10 Essential (primary) hypertension; R06.02 Shortness of breath; E78.5 Hyperlipidemia, unspecified; E78.00 Pure hypercholesterolemia, unspecified; Z95.818 Presence of other cardiac implants and grafts; Z79.82 Long term (current) use of aspirin; Z95.1 Presence of aortocoronary bypass graft; F32.9 Major depressive disorder, single episode, unspecified; F41.9 Anxiety disorder, unspecified

== ENCOUNTER → 2017-12-18 | Outpatient (CLI) | payer OTHER ==
[~2017-12-18] MED LIST changes: -AMLO-110 PO; +ATV5X PO; +LPR25 PO; +LSX20 PO; +OXYC-609 PO; +POTA10CA28 PO; -RANO500T PO
[2017-12-18 17:48] LABS: BASO % 0.8 %; BASO ABS # 0.04 K/uL (0-0.2); EOS % 3.4 %; EOS ABS # 0.18 K/uL (0-0.5); HEMATOCRIT 33.6 % (42-52); HEMOGLOBIN 10.8 g/dL (14.0-18.0); IG# 0.01 K/uL (0.00-0.02); LYMPH % 18.4 %; LYMPH ABS # 0.98 K/uL (1.2-3.4); MEAN CELL VOLUME 100.6 fL (80-100); MEAN CORPUSCULAR HEMOGLOBIN 32.3 pg (25-34); MEAN CORPUSCULAR HGB CONC 32.1 g/dl (32-36); MEAN PLATELET VOLUME 9.9 fL (7.4-10.4); MONO % 10.1 %; MONO ABS # 0.54 K/uL (0.11-0.59); NEUT % 67.1 %; NEUT ABS # 3.58 K/uL (1.4-6.5); PLATELET COUNT 358 K/uL (130-400); RED CELL DISTRIBUTION WIDTH CV 17.1 % (11.5-14.5); RED CELL DISTRIBUTION WIDTH SD 62.7 fL (36.4-46.3); WHITE BLOOD COUNT 5.33 K/uL (4.8-10.8)
[2017-12-18 18:33] LABS: ALBUMIN 3.5 gm/dl (3.4-5.0); ALT/SGPT 38 U/L (12-78); AST/SGOT 18 U/L (15-37); BLOOD UREA NITROGEN 22 mg/dl (7-18); CALCIUM 8.8 mg/dl (8.5-10.1); CARBON DIOXIDE 27 mmol/L (21-32); CREATININE 1.08 mg/dl (0.60-1.40); GLUCOSE 96 mg/dl (70-99); LIPASE 858 U/L (73-393); POTASSIUM 4.1 mmol/L (3.5-5.1); SODIUM 137 mmol/L (136-145)
[2017-12-18 18:36] LABS: ALKALINE PHOSPHATASE 100 U/L (45-117); TOTAL PROTEIN 7.2 gm/dl (6.4-8.2)
== END | disposition home or self-care (01) ==
LOC: C.LABMFLN 12:08
PROVIDERS: ATTEND Family Medicine
DX: R17 Unspecified jaundice (principal); R06.09 Other forms of dyspnea; I50.9 Heart failure, unspecified

== ENCOUNTER → 2018-01-09 | Outpatient (CLI) | payer OTHER ==
--- NOTE | 2018-01-09 11:41 | DIAGNOSTIC IMAGING REPORT ---
CHEST 2 VIEWS ROUTINE CLINICAL HISTORY: I50.9, R00.2 dyspnea COMPARISON STUDY: 12/12/2017 FINDINGS: Improved aeration left lung base. Minimal residual atelectasis. Lungs otherwise are clear. Evidence for prior median sternotomy. No significant cardiac enlargement. IMPRESSION: Improved aeration left lung base with minimal residual atelectasis. The above report was generated using voice recognition software. It may contain grammatical, syntax or spelling errors. Electronically signed by: Rc Long M.D. 01/09/2018 11:40 AM Dictated Date/Time: 01/09/2018 11:39 AM
== END | disposition home or self-care (01) ==
LOC: C.RAD 10:59
PROVIDERS: ATTEND Family Medicine
DX: I50.9 Heart failure, unspecified (principal); R00.2 Palpitations

== ENCOUNTER → 2018-01-09 | Outpatient (CLI) | payer OTHER ==
[2018-01-09 12:24] LABS: BASO % 0.6 %; BASO ABS # 0.03 K/uL (0-0.2); EOS ABS # 0.15 K/uL (0-0.5); HEMATOCRIT 39.2 % (42-52); HEMOGLOBIN 13.4 g/dL (14.0-18.0); LYMPH % 23.2 %; LYMPH ABS # 1.15 K/uL (1.2-3.4); MEAN CELL VOLUME 94.7 fL (80-100); MEAN CORPUSCULAR HEMOGLOBIN 32.4 pg (25-34); MEAN CORPUSCULAR HGB CONC 34.2 g/dl (32-36); MEAN PLATELET VOLUME 10.7 fL (7.4-10.4); MONO % 7.5 %; MONO ABS # 0.37 K/uL (0.11-0.59); NEUT % 65.7 %; NEUT ABS # 3.25 K/uL (1.4-6.5); PLATELET COUNT 205 K/uL (130-400); RED CELL DISTRIBUTION WIDTH CV 14.1 % (11.5-14.5); RED CELL DISTRIBUTION WIDTH SD 48.9 fL (36.4-46.3); WHITE BLOOD COUNT 4.95 K/uL (4.8-10.8)
[2018-01-09 12:57] LABS: BLOOD UREA NITROGEN 23 mg/dl (7-18); CALCIUM 9.1 mg/dl (8.5-10.1); CARBON DIOXIDE 30 mmol/L (21-32); CREATININE 1.07 mg/dl (0.60-1.40); GLUCOSE 88 mg/dl (70-99); POTASSIUM 4.5 mmol/L (3.5-5.1); SODIUM 136 mmol/L (136-145)
== END | disposition home or self-care (01) ==
LOC: C.LABMFLN 09:43
PROVIDERS: ATTEND Family Medicine
DX: R00.2 Palpitations (principal); I50.9 Heart failure, unspecified

== ENCOUNTER → 2018-03-10 | Day surgery (SDC) | payer OTHER ==
[2018-03-05 07:50] VITALS: Ht 180.3 cm; Wt 101.8 kg
[~2018-03-10] VITALS: Ht 180.3 cm; Wt 101.8 kg
[~2018-03-10] MED LIST changes: +500ML BSS 0.3ML EPI 1:1000PF IRRIG ONE; +ACETAMINOPHEN 325 MG TAB PO PRN; +AMVISC PLUS 0.8ML SYRINGE INT OCU ONE; +ASPCH81X PO; -ASPEC81 PO; +ATOR-26 PO; +ATROPINE SULFATE 0.1 MG/ML 5ML SYR IV PRN; -ATV5X PO; +BSS FLUSH ONE; +COEN30CA6 PO; +EpHEDrine SULFATE INJ 50 MG/ML AMP IV PRN; +EpINEphrine INJ 1MG/ML AMP 1 MG/ML AMP ONE; +LACTATED RINGER'S 1000ML 500 ML IV SCH; +LIDOCAINE 3.5% OPH GEL PER APPLICATION CHARGE ONE; +LIDOCAINE HCL 1% MPF 2 ML VIAL ONE; -LPR25 PO; -LPT40 PO; -LSX20 PO; +MIDAZOLAM HCL 1 MG/ML 2ML VIAL ONE; +NITR0.4S UT; -NTRGSL/4 UT; +OCUCOAT 1 ML SOLN IO ONE; -OXYC-609 PO; -POTA10CA28 PO; +POVIDONE-IODINE OP SOLN 30 ML BTL ONE; +PROPARACAINE 0.5% OP SOLN PER DROP CHARGE OPL SCH; +TOBRAMYCIN/DEXAMETHASONE OPH OINT PER APPLN CHARGE ONE
--- NOTE | 2018-03-10 12:11 | History & Physical Bridge - SC ---
H&P Re-Evaluation Bridge Note: I have examined the patient, reviewed the History & Physical and in the interval since the performance of the History & Physical I have noted the following changes of clinical significance: Diagnosis: Left Cataract Procedure: Left Cataract Removal with Lens Implant No changes noted
[2018-03-10] MEDS: PHENYLEPHRINE HCL 2.5% OP SOLN PER DROP CHARGE OPL SCH ×2 (12:15→12:20)
[2018-03-10] MEDS: TROPICAMIDE 1% OP SOLN PER DROP CHARGE OPL SCH ×2 (12:15→12:21)
[2018-03-10] MEDS: CYCLOPENTOLATE HCL 1% OP SOLN PER DROP CHARGE OPL SCH ×2 (12:16→12:22)
[2018-03-10] MEDS: KETOROLAC 0.5% OP SOLN PER DROP CHARGE OPL SCH ×2 (12:17→12:23)
[2018-03-10] MEDS: GATIFLOXACIN OP SOLN PER DROP CHARGE OPL SCH ×2 (12:18→12:24)
--- NOTE | 2018-03-10 12:47 | [facility] Operative Report ---
Operative Report Date of Service Mar 10, 2018. Operative Report 1. PREOPERATIVE DIAGNOSIS: Cataract of the left eye. 2. POSTOPERATIVE DIAGNOSIS: Same. 3. PROCEDURE: Phacoemulsification with intraocular lens implantation of the left eye. SURGEON: Dr. Spike Boland. ANESTHESIA: Topical Lidocaine gel, 1% Non- Preserved intracameral Lidocaine, and monitored intravenous sedation. INDICATIONS FOR THE PROCEDURE: The patient is a 67 - year-old male with a history of cataract of the left eye causing significant visual impairment. The details of the proposed procedure were explained to the patient who asked appropriate questions and following discussion of all risks, benefits and alternatives agreed to have the procedure done. 4. OPERATION AND FINDINGS: DESCRIPTION OF PROCEDURE: After informed consent was obtained, the patient was brought to the Operating Room at the [facility]. The patient was placed in a supine position and then the left eye was prepped and draped in the usual sterile fashion for intraocular surgery. A drop of topical Lidocaine gel was placed in the operative eye. A wire lid speculum was then placed in the fornices. A corneal paracentesis was then created temporally. The Non-Preserved Lidocaine was then instilled into the anterior chamber. The anterior chamber was then pressurized with viscoelastic. A 2.0 mm clear corneal incision was then created temporally. A cystotome was inserted into the anterior chamber and used to create a tear in the anterior lens capsule. This capsular tear was then used to create a small flap and the flap was dragged in a counterclockwise direction in order to create a continuous curvilinear capsulorrhexis. Hydrodissection was accomplished with balanced salt solution. Phacoemulsification of the lens nucleus was then performed in a standard [id number] technique. The phaco time was 11 seconds with an average power of 8 %. The remaining cortical material was removed using irrigation aspiration. The capsular bag was then filled with viscoelastic. A Bausch [employer] Lomb MI60L +13.0 diopters lens was then loaded into the injector and injected into the capsular bag. The remaining viscoelastic was removed with the irrigation aspiration handpiece. The wound was hydrated and then checked and found to be watertight. The intraocular pressure was checked and found to be adequate. The wire lid speculum was removed and the patient's face was cleaned and dried. TobraDex ointment was placed in the inferior fornix. The patient was discharged to the Recovery Room having tolerated the procedure well. There were no complications. The patient will be seen tomorrow in the office for follow-up. I attest to the content of the Intraoperative Record and any orders documented therein. Any exceptions are noted below.
--- NOTE | 2018-03-10 12:48 | Discharge Instructions-SurgCtr ---
Discharge Instructions Date of Service Mar 10, 2018. Visit Reason for Visit: Cataract Left Eye Discharge Discharge Diagnosis / Problem: cataract Discharge Goals Goal(s): Improve function Activity Recommendations Activity Limitations: per Instructions/Follow-up section Anesthesia . Post Anesthesia Instructions: If you have had General Anesthesia or IV Sedation: * Do not drive today. * Resume driving when surgeon permits. * Do not make important decisions or sign legal documents today. * Call surgeon for: 1. Temperature elevations greater than 101 degrees F. 2. Uncontrollable pain. 3. Excessive bleeding. 4. Persistent nausea and vomiting. 5. Medication intolerance (nausea, vomiting or rash). * For nausea and vomiting use only clear liquids such as: tea, soda, bouillon until nausea subsides, then gradually increase diet as tolerated. * If you have any concerns or questions, call your surgeon's office. If physician is unavailable and it is an emergency, call 911 or go to the nearest emergency room. . Diet Recommendations Home Diet: resume previous diet Procedures Procedures Performed: Left Cataract Phacoemulsification With Intraocular Lens Implant Pending Studies Studies pending at discharge: no Medical Emergencies . Who to Call and When: Medical Emergencies: If at any time you feel your situation is an emergency, please call 911 immediately. . Non-Emergent Contact Non-Emergency issues call your: Aircraft Design Engineer . . "Provider Documentation" section prepared by Spike Boland. .
[2018-03-10 13:18] VITALS: BP 123/73; PULSE 59; O2SAT 97
--- NOTE | 2018-03-10 13:19 | Anesthesia Progress Nt - [facility] ---
Anesthesia Post Op Note Date & Time Mar 10, 2018 at 13:19 Vital Signs Pain Intensity: 0 Vital Signs Past 12 Hours Date Time Temp Pulse Resp B/P (MAP) Pulse Ox O2 Delivery O2 Flow Rate FiO2 03/10/18 12:49 37.1 58 16 111/70 (84) 98 Room Air 03/10/18 12:06 36.5 63 18 126/83 (97) 99 Room Air Notes Mental Status: alert / awake / arousable, participated in evaluation Pt Amnestic to Procedure: Yes Nausea / Vomiting: adequately controlled Pain: adequately controlled Airway Patency, RR, SpO2: stable & adequate BP & HR: stable & adequate Hydration State: stable & adequate Anesthetic Complications: no major complications apparent
== END | disposition home or self-care (01) ==
LOC: X.SURG 11:51
PROVIDERS: ATTEND Ophthalmology
DX: H26.9 Unspecified cataract (principal); I25.10 Atherosclerotic heart disease of native coronary artery without angina pectoris; F43.20 Adjustment disorder, unspecified; I10 Essential (primary) hypertension; R06.09 Other forms of dyspnea; E78.5 Hyperlipidemia, unspecified; Z90.89 Acquired absence of other organs; Z95.5 Presence of coronary angioplasty implant and graft; Z83.3 Family history of diabetes mellitus; Z82.49 Family history of ischemic heart disease and other diseases of the circulatory system; Z88.8 Allergy status to other drugs, medicaments and biological substances; Z79.82 Long term (current) use of aspirin

== ENCOUNTER → 2018-03-31 | Day surgery (SDC) | payer OTHER ==
[2018-03-24 14:07] VITALS: Ht 180.3 cm; Wt 101.8 kg
[~2018-03-31] VITALS: Ht 180.3 cm; Wt 101.8 kg
[~2018-03-31] MED LIST changes: +FENTANYL CITRATE INJ 50 MCG/1 ML 2 ML VIAL IV PRN; +FLUMAZENIL 0.1 MG/1 ML 10 ML VIAL IV PRN; +HYDROmorphone INJ 2 MG/ML SYR/VIAL IV PRN; +LABETALOL HCL IV 5 MG/ML 20ML IV PRN; +MEPERIDINE HCL 25 MG/ML CARP IV PRN; +NALOXONE HCL 0.4 MG/1 ML VIAL/CARP IV PRN; +ONDANSETRON INJ 2 MG/ML 2 ML VIAL IV PRN; +PHENYLEPHRINE 100MCG/ML 5ML SYR IV PRN; -PROPARACAINE 0.5% OP SOLN PER DROP CHARGE OPL SCH; +PROPARACAINE 0.5% OP SOLN PER DROP CHARGE OPR SCH
[2018-03-31] MEDS: PHENYLEPHRINE HCL 2.5% OP SOLN PER DROP CHARGE OPR SCH ×2 (09:28→09:33)
[2018-03-31] MEDS: TROPICAMIDE 1% OP SOLN PER DROP CHARGE OPR SCH ×2 (09:29→09:34)
[2018-03-31] MEDS: CYCLOPENTOLATE HCL 1% OP SOLN PER DROP CHARGE OPR SCH ×2 (09:30→09:35)
[2018-03-31] MEDS: KETOROLAC 0.5% OP SOLN PER DROP CHARGE OPR SCH ×2 (09:31→09:36)
[2018-03-31] MEDS: GATIFLOXACIN OP SOLN PER DROP CHARGE OPR SCH ×2 (09:32→09:42)
--- NOTE | 2018-03-31 09:45 | History & Physical Bridge - SC ---
H&P Re-Evaluation Bridge Note: I have examined the patient, reviewed the History & Physical and in the interval since the performance of the History & Physical I have noted the following changes of clinical significance: Diagnosis: Right Cataract Procedure: Right Cataract Removal with Lens Implant No changes noted
--- NOTE | 2018-03-31 10:17 | [facility] Operative Report ---
Operative Report Date of Service March 31, 2018. Operative Report 1. PREOPERATIVE DIAGNOSIS: Cataract of the right eye. 2. POSTOPERATIVE DIAGNOSIS: Same. 3. PROCEDURE: Phacoemulsification with intraocular lens implantation of the right eye. SURGEON: Dr. Spike Boland. ANESTHESIA: Topical Lidocaine gel, 1% Non- Preserved intracameral Lidocaine, and monitored intravenous sedation. INDICATIONS FOR THE PROCEDURE: The patient is a 67 - year-old male with a history of cataract of the right eye causing significant visual impairment. The details of the proposed procedure were explained to the patient who asked appropriate questions and following discussion of all risks, benefits and alternatives agreed to have the procedure done. 4. OPERATION AND FINDINGS: DESCRIPTION OF PROCEDURE: After informed consent was obtained, the patient was brought to the Operating Room at the [facility]. The patient was placed in a supine position and then the right eye was prepped and draped in the usual sterile fashion for intraocular surgery. A drop of topical Lidocaine gel was placed in the operative eye. A wire lid speculum was then placed in the fornices. A corneal paracentesis was then created temporally. The Non-Preserved Lidocaine was then instilled into the anterior chamber. The anterior chamber was then pressurized with viscoelastic. A 2.0 mm clear corneal incision was then created temporally. A cystotome was inserted into the anterior chamber and used to create a tear in the anterior lens capsule. This capsular tear was then used to create a small flap and the flap was dragged in a counterclockwise direction in order to create a continuous curvilinear capsulorrhexis. Hydrodissection was accomplished with balanced salt solution. Phacoemulsification of the lens nucleus was then performed in a standard [id number] technique. The phaco time was 15 seconds with an average power of 6 %. The remaining cortical material was removed using irrigation aspiration. The capsular bag was then filled with viscoelastic. A Bausch & Lomb MI60L +14.5 diopters lens was then loaded into the injector and injected into the capsular bag. The remaining viscoelastic was removed with the irrigation aspiration handpiece. The wound was hydrated and then checked and found to be watertight. The intraocular pressure was checked and found to be adequate. The wire lid speculum was removed and the patient's face was cleaned and dried. TobraDex ointment was placed in the inferior fornix. The patient was discharged to the Recovery Room having tolerated the procedure well. There were no complications. The patient will be seen tomorrow in the office for follow-up. I attest to the content of the Intraoperative Record and any orders documented therein. Any exceptions are noted below.
--- NOTE | 2018-03-31 10:18 | Discharge Instructions-SurgCtr ---
Discharge Instructions Date of Service March 31, 2018. Visit Reason for Visit: Cataract Right Eye Discharge Discharge Diagnosis / Problem: cataract Discharge Goals Goal(s): Improve function Activity Recommendations Activity Limitations: per Instructions/Follow-up section Anesthesia . Post Anesthesia Instructions: If you have had General Anesthesia or IV Sedation: * Do not drive today. * Resume driving when surgeon permits. * Do not make important decisions or sign legal documents today. * Call surgeon for: 1. Temperature elevations greater than 101 degrees F. 2. Uncontrollable pain. 3. Excessive bleeding. 4. Persistent nausea and vomiting. 5. Medication intolerance (nausea, vomiting or rash). * For nausea and vomiting use only clear liquids such as: tea, soda, bouillon until nausea subsides, then gradually increase diet as tolerated. * If you have any concerns or questions, call your surgeon's office. If physician is unavailable and it is an emergency, call 911 or go to the nearest emergency room. . Diet Recommendations Home Diet: resume previous diet Procedures Procedures Performed: Right Cataract Phacoemulsification With Intraocular Lens Implant Pending Studies Studies pending at discharge: no Medical Emergencies . Who to Call and When: Medical Emergencies: If at any time you feel your situation is an emergency, please call 911 immediately. . Non-Emergent Contact Non-Emergency issues call your: [employer] . . "Provider Documentation" section prepared by Spike Boland. .
[2018-03-31 10:21] VITALS: TEMP 36.6
--- NOTE | 2018-03-31 10:30 | Anesthesia Progress Nt - [facility] ---
Anesthesia Post Op Note Date & Time March 31, 2018 at 10:30 Vital Signs Pain Intensity: 0 Vital Signs Past 12 Hours Date Time Temp Pulse Resp B/P (MAP) Pulse Ox O2 Delivery O2 Flow Rate FiO2 03/31/18 10:21 36.6 61 16 119/72 (88) 100 Room Air 03/31/18 09:18 36.4 62 16 132/80 (97) 97 Room Air Notes Mental Status: alert / awake / arousable, participated in evaluation Pt Amnestic to Procedure: Yes Nausea / Vomiting: adequately controlled Pain: adequately controlled Airway Patency, RR, SpO2: stable & adequate BP & HR: stable & adequate Hydration State: stable & adequate Anesthetic Complications: no major complications apparent
[2018-03-31 10:41] VITALS: BP 119/73; PULSE 55; O2SAT 95
== END | disposition home or self-care (01) ==
LOC: X.SURG 09:01
PROVIDERS: ATTEND Ophthalmology
DX: H26.9 Unspecified cataract (principal); I10 Essential (primary) hypertension; I25.10 Atherosclerotic heart disease of native coronary artery without angina pectoris; F43.20 Adjustment disorder, unspecified; E78.5 Hyperlipidemia, unspecified; Z95.1 Presence of aortocoronary bypass graft; Z90.49 Acquired absence of other specified parts of digestive tract; Z79.82 Long term (current) use of aspirin; Z83.3 Family history of diabetes mellitus; Z82.49 Family history of ischemic heart disease and other diseases of the circulatory system; Z83.49 Family history of other endocrine, nutritional and metabolic diseases

== ENCOUNTER → 2018-04-08 | Outpatient (CLI) | payer OTHER ==
[~2018-04-08] MED LIST changes: -500ML BSS 0.3ML EPI 1:1000PF IRRIG ONE; -ACETAMINOPHEN 325 MG TAB PO PRN; -AMVISC PLUS 0.8ML SYRINGE INT OCU ONE; -ATROPINE SULFATE 0.1 MG/ML 5ML SYR IV PRN; -BSS FLUSH ONE; -EpHEDrine SULFATE INJ 50 MG/ML AMP IV PRN; -EpINEphrine INJ 1MG/ML AMP 1 MG/ML AMP ONE; -FENTANYL CITRATE INJ 50 MCG/1 ML 2 ML VIAL IV PRN; -FLUMAZENIL 0.1 MG/1 ML 10 ML VIAL IV PRN; -HYDROmorphone INJ 2 MG/ML SYR/VIAL IV PRN; -LABETALOL HCL IV 5 MG/ML 20ML IV PRN; -LACTATED RINGER'S 1000ML 500 ML IV SCH; -LIDOCAINE 3.5% OPH GEL PER APPLICATION CHARGE ONE; -LIDOCAINE HCL 1% MPF 2 ML VIAL ONE; -MEPERIDINE HCL 25 MG/ML CARP IV PRN; -MIDAZOLAM HCL 1 MG/ML 2ML VIAL ONE; -NALOXONE HCL 0.4 MG/1 ML VIAL/CARP IV PRN; -OCUCOAT 1 ML SOLN IO ONE; -ONDANSETRON INJ 2 MG/ML 2 ML VIAL IV PRN; -PHENYLEPHRINE 100MCG/ML 5ML SYR IV PRN; -POVIDONE-IODINE OP SOLN 30 ML BTL ONE; -PROPARACAINE 0.5% OP SOLN PER DROP CHARGE OPR SCH; -TOBRAMYCIN/DEXAMETHASONE OPH OINT PER APPLN CHARGE ONE
== END | disposition home or self-care (01) ==
LOC: C.LABMFLN 09:21
PROVIDERS: ATTEND Family Medicine
DX: E78.5 Hyperlipidemia, unspecified (principal)

== ENCOUNTER 2019-03-23 11:51 | Observation (INO) ==
[2019-03-23] MEDS ORDERED: ASPIRIN CHEW 324 MG PO STA (12:08)
--- NOTE | 2019-03-23 12:20 | XRay Report ---
XR chest 1V portable CLINICAL HISTORY: Chest Pain dyspnea COMPARISON STUDY: 12/12/2017 FINDINGS: Prior median sternotomy. Mild stable cardiomegaly. Diaphragms are smooth. The lungs are con sidered clear. Calcified granuloma unchanged in the right suprahilar suprahilar region IMPRESSION: Chronic change. No acute process. The above report was generated using voice recognition software. It may contain grammatical, syntax or spelling errors. Electronically signed by: Rc Long M.D. 03/23/2019 12:18 PM
[2019-03-23 13:02] LABS: Partial Thromboplastin Time 26.5 Seconds (21.0-31.0); Prothrombin Time 10.3 Seconds (9.0-12.0)
[2019-03-23 13:10] LABS: Alanine Aminotransferase 23 U/L (12-78); Albumin Level 3.9 gm/dl (3.4-5.0); Aspartate Aminotransferase 16 U/L (15-37); BUN Creatinine Ratio 22.3 (10-20); Blood Urea Nitrogen 22 mg/dl (7-18); Calcium 8.7 mg/dl (8.5-10.1); Carbon Dioxide 27 mmol/L (21-32); Chloride 106 mmol/L (98-107); Creatinine Clr Calc Pharmacy 93.2 ml/min; Est GFR (African American) 93.9; Glucose 84 mg/dl (70-99); Potassium 3.8 mmol/L (3.5-5.1); Sodium 138 mmol/L (136-145)
[2019-03-23 13:15] LABS: Albumin Globulin Ratio 1.1 (0.9-2); Alkaline Phosphatase 77 U/L (45-117); Bilirubin,Total 1.6 mg/dl (0.2-1); Creatine Kinase 41 U/L (39-308); Creatine Kinase MB 1.4 ng/ml (0.5-3.6); Globulin 3.6 gm/dl (2.5-4.0); Total Protein 7.5 gm/dl (6.4-8.2); Troponin I < 0.015 ng/ml (0-0.045)
[2019-03-23 13:53] LABS: Basophils # (auto) 0.02 K/uL (0-0.2); Basophils % (auto) 0.4 %; Eosinophils # (auto) 0.12 K/uL (0-0.5); Eosinophils % (auto) 2.2 %; Hematocrit (blood only) 43.1 % (42-52); Hemoglobin 15.4 g/dL (14.0-18.0); Immature Granulocytes # (auto) 0.01 K/uL (0.00-0.02); Immature Granulocytes % (auto) 0.2 %; Lymphocytes # (auto) 1.29 K/uL (1.2-3.4); Lymphocytes % (auto) 24.1 %; Mean Corpuscular Hgb Conc 35.7 g/dL (32-36); Mean Corpuscular Volume 89.6 fL (80-100); Mean Platelet Volume 10.8 fL (7.4-10.4); Monocytes # (auto) 0.45 K/uL (0.11-0.59); Monocytes % (auto) 8.4 %; Neutrophils # (auto) 3.47 K/uL (1.4-6.5); Neutrophils % (auto) 64.7 %; Platelet Count 166 K/uL (130-400); RDW Coefficient of Variation 13.1 % (11.5-14.5); RDW Standard Deviation 43.5 fL (36.4-46.3); Red Blood Count 4.81 M/uL (4.7-6.1); White Blood Count 5.36 K/uL (4.8-10.8)
--- NOTE | 2019-03-23 15:27 | History & Physical Report ---
Date of Service March 23, 2019 Assessment & Plan (1) Chest pain: (2) Benign essential HTN: (3) CAD (coronary artery disease): (4) H/O heart artery stent: (5) S/P CABG x 3: (6) HLD (hyperlipidemia): - Admit to tele for observation for r/o - Trend cardiac biomarkers, initial set was negative - EKG reviewed as above - Check 2 D echo - If negative enzymes will ordera stress test tomorrow morning as the patient was origionally scheduled for one today as an outpatient. - PT/OT consulted - Check lipids and A1C - Cardiology consulted - Dr. Nayak has already seen the patient in the outpatient setting today. - Appreciate recs - Exercise and improved diet will need to be encouraged prior to discharge - Continue rosuvastatin 5 mg (7) DVT prophylaxis: - sultana banks subq History of Present Illness Primary Care Provider: Myles Rushing MD This is a 68 yo M with PMHx of CAD s/p LAD PCI, CABG x 3 in 2016, CHELSEA to LAD in 2014, HTN, HLD who presents from his PCP's office this morning. 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 PCP then asked if cardiology to see him in the office (as the location of these two offices is in the same building) and a consult was obtained by Dr. Nayak. The patient reports crescendo decrescendo chest pain ongoing for about 3 weeks, exacerbated on exertion, with associated shortness of breath. Denies exercise routinely, does not drink alcohol, but admits to a remote smoking history over 45 years ago. He denies current chest pain. During cardiology visit, he was supposed to have a stress test completed as an outpatient, but due to the nature of his chest pain it was thought that his troponins should be trended and stress test done in the morning. The patient is agreeable to this plan. His was at bedside. Initial troponin is negative. EKG reviewed and is bradycardic CXR clear. Allergies Allergy/AdvReac Type Severity Reaction Status Date / Time lisinopril AdvReac Unknown COUGH Verified 03/23/19 12:29 loratadine AdvReac Unknown HEADACHE Verified 03/23/19 12:29 Home Medications Home Medications Medication Instructions Recorded Confirmed Type aspirin [Aspirin Low Dose] 81 mg PO DAILY #0 03/05/18 03/23/19 History citalopram 10 mg PO DAILY #0 03/05/18 03/23/19 History nitroglycerin [Nitrostat] 0.4 mg SUBLINGUAL UD PRN #0 btl 03/05/18 03/23/19 History rosuvastatin [Crestor] 5 mg PO DAILY 03/23/19 03/23/19 History Past Med/Surg History Medical History CAD (coronary artery disease) HLD (hyperlipidemia) Benign essential HTN Anxiety High cholesterol Hypertension Surgical History S/P CABG x 3 H/O heart artery stent S/P triple vessel bypass Social History Preferred Language: Burmese Communication Ability: Effective Beliefs That Will Affect Care: None Current Living Situation: Spouse Other Information That Helps Us Care for You: No Feels Safe at Home: Yes Safety Concerns: Feels Safe At This Time Smoking Status: Never smoker Hx Alcohol Use: Yes Alcohol type: beer Hx Substance Use: No Review of Systems Review of Systems: Constitutional: No fever, sweats or chills Eyes: No diplopia, no worsening or blurred vision ENT: normal hearing, no trouble swallowing Respiratory: No cough, sputum, dyspnea at rest or on exertion Cardiovascular: Per HPI. Abdomen: No pain, nausea, vomiting, diarrhea or constipation Musculoskeletal: No joint pain, calf pain, swelling Neurologic: No weakness, numbness/tingling, or balance problems Psychiatric: No anxiety or depression Skin: No rash or itch Physical Exam Physical Exam: General: awake, alert, no apparent distress Head: Normocephalic, atraumatic ENT: PERRL, EOMI, no pharyngeal exudate, mucous membranes moist Chest: Clear to auscultation, on room air, no adventitious breath sounds Cardiac: Regular rate and rhythm, no murmur, no JVD, normal peripheral pulses, good capillary refill Abdominal: NABS x 4 quadrants, soft, nontender to palpation, no rebound, guarding or tenderness Extremities: Normal inspection, trace edema in the LLE, no other peripheral edema or erythema, calfs nontender to palpation Psych: Normal mood and affect Neuro: AAO x 3, strength intact bilaterally and related 5/5, no motor deficits, speech is clear, no peripheral sensory deficits Results & Data Vital Signs (Past 12 Hours) Vital Signs Temp Pulse Pulse Resp BP BP Pulse Ox 03/23/19 14:11 58 L 21 141/78 H 98 03/23/19 14:00 55 L 15 153/76 H 99 03/23/19 13:30 54 L 18 140/77 97 03/23/19 13:17 55 L 18 144/75 H 97 03/23/19 13:00 53 L 17 144/75 H 97 03/23/19 11:55 36.4 C L 58 L 16 142/73 H 98 03/23/19 11:52 98 Supervising Physician Co-Signing Physician Notes Pt seen/examined in conjunction with LYNNETTE Marcus. Orders and plan of admission formulated with LYNNETTE. 68 y/o M 68 yo M Hx CAD s/p LAD PCI, CABG x 3 in 2016, CHELSEA to LAD in 2014, HTN, HLD. Presents from his PCPs office this morning after c/o intermittent CP. 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 Has not had CP since arrival. OE AAO x 3 S1,2 R CTAB NT, ND No CCE No deficits P: Cont ASA, statin, NTG as needed Scheduled for AM stress Cardiology is consulted
[2019-03-23] MEDS ORDERED: ACETAMINOPHEN 325 MG TAB PO PRN (16:14)
[2019-03-23] MEDS ORDERED: NITROGLYCERIN SL 0.4 MG/TAB TAB SL PRN (16:14)
[2019-03-23] MEDS ORDERED: ONDANSETRON INJ 2 MG/ML 2 ML VIAL IV PRN (16:14)
--- NOTE | 2019-03-23 19:34 | Emergency Department Note ---
Entered by Phyllis Acevedo acting as a scribe for Khari Heck DO History of Present Illness General Chief complaint: Cardiac Assessment Stated complaint: CHEST PAIN - REFERRED BY DOCTOR Source: patient History of Present Illness Onset (ago): month(s) (several) Location: chest (left-sided) Severity: similar to prior episodes Pain Consistency: + other (persistent ) Maximum Pain Intensity: 4 Exacerbated By: + movement Associated symptoms: + shortness of breath and + other (negative swelling in legs ) The patient is a 68 year old male who presents to the Emergency Room with complaints of persistent left-sided chest discomfort that began several months prior to arrival. He states that his pain is exacerbated by movement. The patient states that he has shortness of breath with this discomfort. He states that this is similar to prior episodes. The patient denies swelling in his legs. The patient states that he had a cardiac stent placed 4 years ago and a triple bypass one year ago. Home Medications Home Medications Medication Instructions Recorded Confirmed Type aspirin [Aspirin Low Dose] 81 mg PO DAILY #0 03/05/18 03/23/19 History citalopram 10 mg PO DAILY #0 03/05/18 03/23/19 History nitroglycerin [Nitrostat] 0.4 mg SUBLINGUAL UD PRN #0 btl 03/05/18 03/23/19 History rosuvastatin [Crestor] 5 mg PO DAILY 03/23/19 03/23/19 History Allergies Allergy/AdvReac Type Severity Reaction Status Date / Time lisinopril AdvReac Unknown COUGH Verified 03/23/19 12:29 loratadine AdvReac Unknown HEADACHE Verified 03/23/19 12:29 Past Med/Surg History Medical History CAD (coronary artery disease) HLD (hyperlipidemia) Benign essential HTN Anxiety High cholesterol Hypertension Surgical History S/P CABG x 3 H/O heart artery stent S/P triple vessel bypass Social History Preferred Language: Portuguese Communication Ability: Effective Beliefs That Will Affect Care: None Current Living Situation: Spouse Other Information That Helps Us Care for You: No Feels Safe at Home: Yes Safety Concerns: Feels Safe At This Time Smoking Status: Never smoker Hx Alcohol Use: Yes Alcohol type: beer Hx Substance Use: No Review of Systems See HPI for pertinent positives & negatives. and A total of 10 systems reviewed and were otherwise negative Physical Exam Vital Signs Vital Signs - 24 hr 03/23/19 11:52 03/23/19 11:55 03/23/19 13:00 Temperature 36.4 C L Temperature Source Oral Sepsis Recent Fever Within 48 Hours No Sepsis New/Unexplained Change in Mental Status No Sepsis Action Taken by Nursing No Action Required Pulse Rate 58 L 53 L Pulse Rate [Carotid] Pulse Rate from SpO2 Sensor 53 L Pulse Rhythm [Carotid] Pulse Strength [Carotid] Respiratory Rate 16 17 Respiratory Effort / Characteristics Respiratory Depth Respiratory Pattern Blood Pressure 142/73 H 144/75 H Blood Pressure [Right Arm] Blood Pressure Mean 96 98 Blood Pressure Mean [Right Arm] Blood Pressure Position [Right Arm] Pulse Oximetry 98 98 97 Oxygen Delivery Method Room Air 03/23/19 13:17 03/23/19 13:30 03/23/19 14:00 Temperature Temperature Source Sepsis Recent Fever Within 48 Hours Sepsis New/Unexplained Change in Mental Status Sepsis Action Taken by Nursing Pulse Rate 54 L 55 L Pulse Rate [Carotid] 55 L Pulse Rate from SpO2 Sensor 54 L 55 L Pulse Rhythm [Carotid] Regular Pulse Strength [Carotid] Respiratory Rate 18 18 15 Respiratory Effort / Characteristics Respiratory Depth Normal Respiratory Pattern Blood Pressure 140/77 153/76 H Blood Pressure [Right Arm] 144/75 H Blood Pressure Mean 98 101 Blood Pressure Mean [Right Arm] 98 Blood Pressure Position [Right Arm] Sitting Pulse Oximetry 97 97 99 Oxygen Delivery Method Room Air 03/23/19 14:10 03/23/19 14:11 03/23/19 14:20 Temperature Temperature Source Sepsis Recent Fever Within 48 Hours Sepsis New/Unexplained Change in Mental Status Sepsis Action Taken by Nursing Pulse Rate 57 L 54 L Pulse Rate [Carotid] 58 L Pulse Rate from SpO2 Sensor 56 L 55 L Pulse Rhythm [Carotid] Pulse Strength [Carotid] Respiratory Rate 23 21 16 Respiratory Effort / Characteristics Respiratory Depth Respiratory Pattern Blood Pressure Blood Pressure [Right Arm] 141/78 H Blood Pressure Mean Blood Pressure Mean [Right Arm] 99 Blood Pressure Position [Right Arm] Pulse Oximetry 99 98 98 Oxygen Delivery Method Room Air 03/23/19 14:30 03/23/19 14:40 03/23/19 14:50 Temperature Temperature Source Sepsis Recent Fever Within 48 Hours Sepsis New/Unexplained Change in Mental Status Sepsis Action Taken by Nursing Pulse Rate 56 L 56 L 53 L Pulse Rate [Carotid] Pulse Rate from SpO2 Sensor 58 L 56 L 53 L Pulse Rhythm [Carotid] Pulse Strength [Carotid] Respiratory Rate 22 16 14 Respiratory Effort / Characteristics Respiratory Depth Respiratory Pattern Blood Pressure 141/78 H Blood Pressure [Right Arm] Blood Pressure Mean 99 Blood Pressure Mean [Right Arm] Blood Pressure Position [Right Arm] Pulse Oximetry 98 96 97 Oxygen Delivery Method 03/23/19 15:00 03/23/19 15:10 03/23/19 15:15 Temperature Temperature Source Sepsis Recent Fever Within 48 Hours Sepsis New/Unexplained Change in Mental Status Sepsis Action Taken by Nursing Pulse Rate 52 L 58 L Pulse Rate [Carotid] Pulse Rate from SpO2 Sensor 52 L 59 L Pulse Rhythm [Carotid] Pulse Strength [Carotid] Respiratory Rate 15 20 Respiratory Effort / Characteristics Non-Labored Spontaneous Respiratory Depth Normal Respiratory Pattern Regular Blood Pressure 142/77 H Blood Pressure [Right Arm] Blood Pressure Mean 98 Blood Pressure Mean [Right Arm] Blood Pressure Position [Right Arm] Pulse Oximetry 96 98 Oxygen Delivery Method Room Air 03/23/19 15:20 03/23/19 15:30 03/23/19 15:31 Temperature Temperature Source Sepsis Recent Fever Within 48 Hours Sepsis New/Unexplained Change in Mental Status Sepsis Action Taken by Nursing Pulse Rate 54 L 53 L 52 L Pulse Rate [Carotid] Pulse Rate from SpO2 Sensor 54 L 53 L 53 L Pulse Rhythm [Carotid] Pulse Strength [Carotid] Respiratory Rate 14 13 12 Respiratory Effort / Characteristics Respiratory Depth Respiratory Pattern Blood Pressure 148/82 H Blood Pressure [Right Arm] Blood Pressure Mean 104 Blood Pressure Mean [Right Arm] Blood Pressure Position [Right Arm] Pulse Oximetry 97 96 96 Oxygen Delivery Method 03/23/19 15:47 03/23/19 16:14 Temperature 36.5 C Temperature Source Oral Sepsis Recent Fever Within 48 Hours Sepsis New/Unexplained Change in Mental Status Sepsis Action Taken by Nursing Pulse Rate 53 L Pulse Rate [Carotid] 54 L Pulse Rate from SpO2 Sensor Pulse Rhythm [Carotid] Regular Pulse Strength [Carotid] Normal Respiratory Rate 19 20 Respiratory Effort / Characteristics Non-Labored Spontaneous Respiratory Depth Normal Respiratory Pattern Regular Blood Pressure 148/82 H Blood Pressure [Right Arm] 162/81 H Blood Pressure Mean Blood Pressure Mean [Right Arm] 108 Blood Pressure Position [Right Arm] Standing Pulse Oximetry 96 98 Oxygen Delivery Method Room Air Room Air GENERAL: Patient is awake, alert, and in no acute distress.Patient is resting comfortably and showing no signs of anxiety EYES: The conjunctivae are clear. The pupils are round and reactive. EARS, NOSE, MOUTH AND THROAT: The nose is without any evidence of any deformity. Mucous membranes are moist.Tongue is midline NECK: The neck is nontender and supple. RESPIRATORY: Normal respiratory effort is noted. There is no evidence of wheezing rhonchi or rales to auscultation. CARDIOVASCULAR: Regular rate and rhythm noted. There no murmurs rubs or gallops normal S1 normal S2 GASTROINTESTINAL: The abdomen is soft. Bowel sounds are present in all quadrants. Abdomen is nontender. MUSCULOSKELETAL/EXTREMITIES: There is no evidence of gross deformity. Full range of motion is noted in the hips and shoulders. SKIN: There is no obvious evidence of any rash. There are no petechiae, pallor or cyanosis noted. NEUROLOGIC: Patient is awake alert and oriented x3. Course 1205: The patient was evaluated in room B12A, and a complete history and physical examination were performed. 1215: I discussed the case with Dr. Hernández who states that he will look into the patient getting a stress test. 1308: I discussed the case with Dr. Hernández who states that the patient is not scheduled for a stress test currently. He states that he feels as though the patient is at high risk and likely requires provacative testing if his troponin is negative. 1344: [facility] for further evaluation. 1428: I discussed the case with Dr. Cheng who states that he does not want the patient to receive an outpatient stress test. He states that he wants the patient to be further evaluated because he is high ris. 1451: I discussed the [facility] agrees with the plan and accepts the patient for further evaluation. Consultations Consultation #1: I discussed the case with Dr. Hernández who states that he will look into the patient getting a stress test. Time: 12:15 Consultation #2: I discussed the case with Dr. Hernández who states that the patient is not scheduled for a stress test currently. He states that he feels as though the patient is at high risk and likely requires provacative testing if his troponin is negative. Time: 13:08 Consultation #3: I discussed the case with Dr[facility] who accepts the patient for further evaluation. Time: 13:44 Administered Medications Discontinued Medications Aspirin (Aspirin) 324 mg PO NOW STA Stop: 03/23/19 12:09 Last Admin: 03/23/19 12:44 Dose: 324 mg Documented by: [id number] Medical Decision Making Differential Diagnosis Differential diagnosis: Etiologies such as cardiac ischemia, aortic dissection, pulmonary embolism, pneumonia, pneumothorax, musculoskeletal, infections, pericarditis, myocarditis, esophageal rupture, gastrointestinal, as well as others were entertained. Medical Records Attestation: I reviewed the patient's medical records. Home Medications Current Medication List: was personally reviewed by me Laboratory Data Attestation: I reviewed the patient's lab results. Result diagrams: 03/23/19 12:27 03/23/19 12:27 Lab Results 03/23/19 03/23/19 03/23/19 Range/Units 12:27 12:27 12:27 WBC 5.36 (4.8-10.8) K/uL RBC 4.81 (4.7-6.1) M/uL Hgb 15.4 (14.0-18.0) g/dL Hct 43.1 (42-52) % MCV 89.6 (80-100) fL MCH 32.0 (25-34) pg MCHC 35.7 (32-36) g/dL RDW Std Deviation 43.5 (36.4-46.3) fL RDW Coeff of Antonio 13.1 (11.5-14.5) % Plt Count 166 (130-400) K/uL MPV 10.8 H (7.4-10.4) fL Immature Gran % (Auto) 0.2 % Neut % (Auto) 64.7 % Lymph % (Auto) 24.1 % [place] % (Auto) 8.4 % Eos % (Auto) 2.2 % Baso % (Auto) 0.4 % Immature Gran # (Auto) 0.01 (0.00-0.02) K/uL Neut # (Auto) 3.47 (1.4-6.5) K/uL Lymph # (Auto) 1.29 (1.2-3.4) K/uL [place] # (Auto) 0.45 (0.11-0.59) K/uL Eos # (Auto) 0.12 (0-0.5) K/uL Baso # (Auto) 0.02 (0-0.2) K/uL PT 10.3 (9.0-12.0) Seconds INR 1.0 (0.9-1.1) APTT 26.5 (21.0-31.0) Seconds PTT Ratio 1.0 Sodium 138 (136-145) mmol/L Potassium 3.8 (3.5-5.1) mmol/L Chloride 106 (98-107) mmol/L Carbon Dioxide 27 (21-32) mmol/L Anion Gap 5.0 (3-11) BUN 22 H (7-18) mg/dl Creatinine 0.97 (0.6-1.4) mg/dl Est Cr Clr Drug Dosing 93.2 ml/min Est GFR ( Amer) 93.9 Est GFR (Non-Af Amer) 81.0 BUN/Creatinine Ratio 22.3 H (10-20) Glucose 84 (70-99) mg/dl Calcium 8.7 (8.5-10.1) mg/dl Total Bilirubin 1.6 H (0.2-1) mg/dl AST 16 (15-37) U/L ALT 23 (12-78) U/L Alkaline Phosphatase 77 (45-117) U/L Total Creatine Kinase 41 (39-308) U/L CK-MB (CK-2) 1.4 (0.5-3.6) ng/ml CK/CKMB % Calc 3.4 H (0-3.0) Troponin I < 0.015 (0-0.045) ng/ml Total Protein 7.5 (6.4-8.2) gm/dl Albumin 3.9 (3.4-5.0) gm/dl Globulin 3.6 (2.5-4.0) gm/dl Albumin/Globulin Ratio 1.1 (0.9-2) Lipase 173 (73-393) U/L 03/23/19 Range/Units 18:19 WBC (4.8-10.8) K/uL RBC (4.7-6.1) M/uL Hgb (14.0-18.0) g/dL Hct (42-52) % MCV (80-100) fL MCH (25-34) pg MCHC (32-36) g/dL RDW Std Deviation (36.4-46.3) fL RDW Coeff of Antonio (11.5-14.5) % Plt Count (130-400) K/uL MPV (7.4-10.4) fL Immature Gran % (Auto) % Neut % (Auto) % Lymph % (Auto) % [place] % (Auto) % Eos % (Auto) % Baso % (Auto) % Immature Gran # (Auto) (0.00-0.02) K/uL Neut # (Auto) (1.4-6.5) K/uL Lymph # (Auto) (1.2-3.4) K/uL [place] # (Auto) (0.11-0.59) K/uL Eos # (Auto) (0-0.5) K/uL Baso # (Auto) (0-0.2) K/uL PT (9.0-12.0) Seconds INR (0.9-1.1) APTT (21.0-31.0) Seconds PTT Ratio Sodium (136-145) mmol/L Potassium (3.5-5.1) mmol/L Chloride (98-107) mmol/L Carbon Dioxide (21-32) mmol/L Anion Gap (3-11) BUN (7-18) mg/dl Creatinine (0.6-1.4) mg/dl Est Cr Clr Drug Dosing ml/min Est GFR ( Amer) Est GFR (Non-Af Amer) BUN/Creatinine Ratio (10-20) Glucose (70-99) mg/dl Calcium (8.5-10.1) mg/dl Total Bilirubin (0.2-1) mg/dl AST (15-37) U/L ALT (12-78) U/L Alkaline Phosphatase (45-117) U/L Total Creatine Kinase (39-308) U/L CK-MB (CK-2) (0.5-3.6) ng/ml CK/CKMB % Calc (0-3.0) Troponin I < 0.015 (0-0.045) ng/ml Total Protein (6.4-8.2) gm/dl Albumin (3.4-5.0) gm/dl Globulin (2.5-4.0) gm/dl Albumin/Globulin Ratio (0.9-2) Lipase (73-393) U/L Imaging Data Radiologist's Impression: Radiology results as stated below per my review and the radiologist's interpretation: XR chest 1V portable CLINICAL HISTORY: Chest Pain dyspnea COMPARISON STUDY: 12/12/2017 FINDINGS: Prior median sternotomy. Mild stable cardiomegaly. Diaphragms are smooth. The lungs are considered clear. Calcified granuloma unchanged in the right suprahilar suprahilar region IMPRESSION: Chronic change. No acute process. The above report was generated using voice recognition software. It may contain grammatical, syntax or spelling errors. Electronically signed by: Rc Long M.D. 03/23/2019 12:18 PM ECG Data Attestation: I personally reviewed and interpreted this ECG as follows: Indication: chest pain Rate (beats per minute): 50 Rhythm: sinus bradycardia Findings: + other (no acute ST segment abnormalities); no ectopy Comparison ECG Date: from (12/11/2017) Change: no significant change Blood Pressure Blood Pressure Findings: Elevated blood pressure Blood Pressure Disposition: further management by hospitalist MDM Narrative The patient is a 68-year-old male who presented to the emergency department for evaluation of chest discomfort. The patient has been having intermittent ep isodes of chest pain which have been related with exertion. The patient's pain is significantly improved with rest. 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 Because of his complaints he was seen by his primary word processor technician. He was sent to the emergency department immediately by his primary word processor technician because of an unstable anginal pattern. The patient is currently pain-free. He was treated with aspirin in the emergency department. I discussed the patient's laboratory and radiographic studies with him. I also discussed his case with his primary word processor technician as well [facility] The sense is that the patient has unstable angina at this time and may not be stable for an outpatient stress test. For this reason I discussed his case with the on-call [facility] hospitalist group. They have agreed to evaluate the patient in the emergency department for further management and disposition. Impression & Plan Exertional chest pain Discharge Plan Visit Data *Final* Discharge Date/Time: 03/23/19 15:47 Chief Complaint: Cardiac Assessment Stated Complaint: CHEST PAIN - REFERRED BY DOCTOR ED Provider: Khari Heck Discharge Problem: Exertional chest pain Patient Disposition: Admitted As Inpatient Discharge Instructions Interventions: ED Discharge Assessment Last Done: 03/23/19 15:47 The scribe's documentation has been prepared under my direction and personally reviewed by me in its entirety. I confirm that the note above accurately reflect s all work, treatment, procedures, and medical decision making performed by me.
[2019-03-24 03:22] LABS: Alanine Aminotransferase 22 U/L (12-78); Albumin Level 3.4 gm/dl (3.4-5.0); Aspartate Aminotransferase 14 U/L (15-37); BUN Creatinine Ratio 20.3 (10-20); Blood Urea Nitrogen 21 mg/dl (7-18); Calcium 8.2 mg/dl (8.5-10.1); Carbon Dioxide 29 mmol/L (21-32); Chloride 106 mmol/L (98-107); Creatinine Clr Calc Pharmacy 87.8 ml/min; Est GFR (African American) 87.3; Est GFR (Non-African American) 75.3; Glucose 91 mg/dl (70-99); Magnesium 2.2 mg/dl (1.8-2.4); Potassium 3.9 mmol/L (3.5-5.1); Sodium 138 mmol/L (136-145)
[2019-03-24 03:25] LABS: Alkaline Phosphatase 72 U/L (45-117); Bilirubin,Total 1.5 mg/dl (0.2-1); Chol HDL Ratio 6; Cholesterol 219 mg/dl (0-200); Globulin 3.4 gm/dl (2.5-4.0); HDL Cholesterol 35 mg/dl; LDL Cholesterol Calculated 162 mg/dl; Total Protein 6.8 gm/dl (6.4-8.2); Triglycerides 112 mg/dl (0-150); Troponin I < 0.015 ng/ml (0-0.045); VLDL Cholesterol 22 mg/dl
[2019-03-24 06:08] LABS: Estimated Average Glucose 111 mg/dl; Hemoglobin A1C 5.5 % (4.5-5.6)
[2019-03-24] MEDS ORDERED: CITALOPRAM 20 MG TAB PO SCH (09:00)
[2019-03-24] MEDS ORDERED: ENOXAPARIN INJ 40 MG/0.4 ML SYR SQ SCH (09:00)
[2019-03-24] MEDS ORDERED: ROSUVASTATIN CALCIUM 5 MG TAB PO SCH (09:00)
[2019-03-24] MEDS ORDERED: ASPIRIN 81 MG ECTAB PO SCH (09:00)
[2019-03-24] MEDS ORDERED: PERFLUTREN LIPID MICROSPHERE (DEFINITY) IV ONE (09:18)
--- NOTE | 2019-03-24 10:29 | Cardiology Progress Note ---
Date of Service March 24, 2019 Assessment & Plan (1) CAD (coronary artery disease): Status post prior PCI and also CABG. No definite angina. Chest discomfort is atypical in the fact that has been present for greater than 24 hours with negative troponin levels. Given dyspnea with exertion however recommend continuation with stress echo today. Order was placed. Continue aspirin 81 mg daily. Continue statin therapy. (2) S/P CABG x 3: Plan as above. (3) Chest pain: Chest pain is atypical. He describes 2 different sensations. One is reproducible and appears to be musculoskeletal in origin. The other etiology is not certain. Will defer further workup to primary hospitalist service. Stress echo as above. Negative troponins despite chest discomfort present For greater than 24 hours. (4) Heart palpitations: He experience palpitations overnight but no arrhythmia on telemetry. He was reassured. No further evaluation. (5) HLD (hyperlipidemia): Most recent LDL done yesterday in the outpatient setting with significantly elevated. He stop taking atorvastatin approximately 6 months ago due to GI upset. He was placed on rosuvastatin 5 mg daily yesterday. If tolerates, would consider titrating to high-intensity statin therapy as an outpatient. Disposition: If stress echo is unremarkable, he can be discharged home from a cardiac perspective. Further noncardiac chest pain evaluation as per primary hospitalist service. He already has cardiology follow-up scheduled in the outpatient setting later this month. Subjective He continues to have his left-sided sharp chest pain and left "lazy" chest discomfort. They have not subsided since onset yesterday morning. He denies shortness of breath. He did ambulate hallway. He denies orthopnea, syncope, near-syncope, or edema. He did have some palpitations however review of telemetry demonstrated no arrhythmia. Review of systems: As above. Physical Exam Physical Exam: Gen.: No acute distress. Alert and oriented. HEENT: Anicteric sclera. Neck: No JVD. Cardiac: Regular. Normal S1-S2. No murmurs, rubs, or gallops. Pulmonary: Clear to auscultation bilaterally without wheezes, rales, or rhonchi. Abdomen: Soft, nontender, nondistended, with normoactive bowel sounds. No bruits noted. Extremities: No edema or cyanosis. Psychiatric: Affect appears appropriate. Chest: Focal left sternal border tenderness reproducing his sharp chest discomfort. Results & Data Vital Signs (Past 12 Hours) Vital Signs Temp Pulse Pulse Resp BP Pulse Ox 03/24/19 07:50 36.8 C 54 L 18 118/63 98 03/24/19 03:53 36.6 C 51 L 15 114/68 96 03/24/19 00:00 56 L 03/23/19 23:51 36.6 C 55 L 15 122/74 94 Laboratory Results Laboratory Results - last 24 hr 03/23/19 03/23/19 03/23/19 12:27 12:27 12:27 WBC 5.36 RBC 4.81 Hgb 15.4 Hct 43.1 MCV 89.6 MCH 32.0 MCHC 35.7 RDW Std Deviation 43.5 RDW Coeff of Antonio 13.1 Plt Count 166 MPV 10.8 H Immature Gran % (Auto) 0.2 Neut % (Auto) 64.7 Lymph % (Auto) 24.1 [place] % (Auto) 8.4 Eos % (Auto) 2.2 Baso % (Auto) 0.4 Immature Gran # (Auto) 0.01 Neut # (Auto) 3.47 Lymph # (Auto) 1.29 [place] # (Auto) 0.45 Eos # (Auto) 0.12 Baso # (Auto) 0.02 PT 10.3 INR 1.0 APTT 26.5 PTT Ratio 1.0 Sodium 138 Potassium 3.8 Chloride 106 Carbon Dioxide 27 Anion Gap 5.0 BUN 22 H Creatinine 0.97 Est Cr Clr Drug Dosing 93.2 Est GFR ( Amer) 93.9 Est GFR (Non-Af Amer) 81.0 BUN/Creatinine Ratio 22.3 H Glucose 84 Estimat Average Glucose Hemoglobin A1c Calcium 8.7 Magnesium Total Bilirubin 1.6 H AST 16 ALT 23 Alkaline Phosphatase 77 Total Creatine Kinase 41 CK-MB (CK-2) 1.4 CK/CKMB % Calc 3.4 H Troponin I < 0.015 Total Protein 7.5 Albumin 3.9 Globulin 3.6 Albumin/Globulin Ratio 1.1 Triglycerides Cholesterol LDL Cholesterol, Calc VLDL Cholesterol, Calc HDL Cholesterol Cholesterol/HDL Ratio Lipase 173 03/23/19 03/24/19 03/24/19 18:19 02:40 02:40 WBC RBC Hgb Hct MCV MCH MCHC RDW Std Deviation RDW Coeff of Antonio Plt Count MPV Immature Gran % (Auto) Neut % (Auto) Lymph % (Auto) [place] % (Auto) Eos % (Auto) Baso % (Auto) Immature Gran # (Auto) Neut # (Auto) Lymph # (Auto) [place] # (Auto) Eos # (Auto) Baso # (Auto) PT INR APTT PTT Ratio Sodium 138 Potassium 3.9 Chloride 106 Carbon Dioxide 29 Anion Gap 3.0 BUN 21 H Creatinine 1.03 Est Cr Clr Drug Dosing 87.8 Est GFR ( Amer) 87.3 Est GFR (Non-Af Amer) 75.3 BUN/Creatinine Ratio 20.3 H Glucose 91 Estimat Average Glucose 111 Hemoglobin A1c 5.5 Calcium 8.2 L Magnesium 2.2 Total Bilirubin 1.5 H AST 14 L ALT 22 Alkaline Phosphatase 72 Total Creatine Kinase CK-MB (CK-2) CK/CKMB % Calc Troponin I < 0.015 < 0.015 Total Protein 6.8 Albumin 3.4 Globulin 3.4 Albumin/Globulin Ratio 1.0 Triglycerides 112 Cholesterol 219 H LDL Cholesterol, Calc 162 VLDL Cholesterol, Calc 22 HDL Cholesterol 35 Cholesterol/HDL Ratio 6 Lipase Diagnostic Findings Telemetry personally reviewed: No arrhythmia. Sinus rhythm. ECG personally reviewed: ECG 03/23/2019: Sinus bradycardia 50 bpm. Left axis deviation. Cannot rule out inferior infarct. Medications Administered Current Inpatient Medications Acetaminophen (Tylenol) 650 mg PO Q4H PRN PRN Reason: Moderate Pain Stop: 04/22/19 16:13 Aspirin (Ecotrin Ectab) 81 mg PO DAILY [facility] Stop: 04/23/19 08:59 Last Admin: 03/24/19 07:57 Dose: 81 mg Documented by: Citalopram Hydrobromide (Celexa) 10 mg PO DAILY [facility] Stop: 04/23/19 08:59 Last Admin: 03/24/19 07:56 Dose: 10 mg Documented by: Enoxaparin Sodium (Lovenox) 40 mg SQ QAM [facility] Stop: 04/23/19 08:59 Last Admin: 03/24/19 07:56 Dose: 40 mg Documented by: Nitroglycerin (Nitrostat) 0.4 mg SL UD PRN PRN Reason: Chest Pain Stop: 04/22/19 16:13 Ondansetron HCl (Zofran) 4 mg IV Q4H PRN PRN Reason: Nausea And Vomiting Stop: 04/22/19 16:13 Rosuvastatin Calcium (Crestor) 5 mg PO DAILY [facility] Stop: 04/23/19 08:59 Last Admin: 03/24/19 07:57 Dose: 5 mg Documented by:
--- NOTE | 2019-03-24 14:53 | Discharge Summary ---
Date of Service March 24, 2019 Admission HPI Per Admitting Provider This is a 68 yo M with PMHx of CAD s/p LAD PCI, CABG x 3 in 2017, CHELSEA to LAD in 2014, HTN, HLD who presents from his PCP's office this morning. 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 PCP then asked if cardiology to see him in the office (as the location of these two offices is in the same building) and a consult was obtained by Dr. Nayak. The patient reports crescendo decrescendo chest pain ongoing for about 3 weeks, exacerbated on exertion, with associated shortness of breath. Denies exercise routinely, does not drink alcohol, but admits to a remote smok ing history over 45 years ago. He denies current chest pain. During cardiology visit, he was supposed to have a stress test completed as an outpatient, but due to the nature of his chest pain it was thought that his troponins should be trended and stress test done in the morning. The patient is agreeable to this plan. His was at bedside. Initial troponin is negative. EKG reviewed and is bradycardic CXR clear. Principal Diagnosis Chest pain-non cardiac Discharge Exam Constitutional WD/WN, vitals as above Eyes PERRL, conjunctivae normal, anicteric sclerae ENMT external ear and nose normal, oropharynx normal Neck trachea midline, no thyromegaly Respiratory normal respiratory effort, lungs clear to auscultation Cardiovascular RRR, no murmur, no edema Gastrointestinal (Abdomen) normal bowel sounds, soft, nontender, no hepatosplenomegaly Musculoskeletal Extremities: extremities normal to inspection; no cyanosis and no clubbing Skin no rashes, warm and dry Neurologic moves all extremities and awake; no focal motor deficits Psychiatric A+Ox3, euthymic affect Discharge Data Allergies Allergy/AdvReac Type Severity Reaction Status Date / Time lisinopril AdvReac Unknown COUGH Verified 03/23/19 12:29 loratadine AdvReac Unknown HEADACHE Verified 03/23/19 12:29 Consultations 03/23/19 13:44 ED Decision to Admit Stat 03/23/19 16:14 Consult Cardiology Routine Consult Case Management - Discharge Planning Routine Procedures Performed Sterss ECHO Resting ECHO Ordered Studies 03/24/19 03/24/19 03/23/19 Range/Units 02:40 02:40 18:19 Sodium 138 (136-145) mmol/L Potassium 3.9 (3.5-5.1) mmol/L Chloride 106 (98-107) mmol/L Carbon Dioxide 29 (21-32) mmol/L Anion Gap 3.0 (3-11) BUN 21 H (7-18) mg/dl Creatinine 1.03 (0.6-1.4) mg/dl Est Cr Clr Drug Dosing 87.8 ml/min Est GFR ( Amer) 87.3 Est GFR (Non-Af Amer) 75.3 BUN/Creatinine Ratio 20.3 H (10-20) Glucose 91 (70-99) mg/dl Estimat Average Glucose 111 mg/dl Hemoglobin A1c 5.5 (4.5-5.6) % Calcium 8.2 L (8.5-10.1) mg/dl Magnesium 2.2 (1.8-2.4) mg/dl Total Bilirubin 1.5 H (0.2-1) mg/dl AST 14 L (15-37) U/L ALT 22 (12-78) U/L Alkaline Phosphatase 72 (45-117) U/L Troponin I < 0.015 < 0.015 (0-0.045) ng/ml Total Protein 6.8 (6.4-8.2) gm/dl Albumin 3.4 (3.4-5.0) gm/dl Globulin 3.4 (2.5-4.0) gm/dl Albumin/Globulin Ratio 1.0 (0.9-2) Triglycerides 112 (0-150) mg/dl Cholesterol 219 H (0-200) mg/dl LDL Cholesterol, Calc 162 mg/dl VLDL Cholesterol, Calc 22 mg/dl HDL Cholesterol 35 mg/dl Cholesterol/HDL Ratio 6 Hospital Course (1) Chest pain: Pt presented with several months of chest pain that seemed to come on with exertion and go away with rest. Pain was reportedly reproducible on exam but he also had a second chest pain. Pt denied any chest pain to me at all on the day of discharge, but Cardiolo Troponin serially negative while here Stress ECHO with abnormality of no augmentation of the septum with peak exercise, possibly related to h/o CABG. LVEF normal Pt adamant about being discharged to home and declines any further evaluation at this time of his heart. Follow up with Cardiology as an outpt (2) CAD (coronary artery disease): Status post prior PCI and also CABG. -Continue aspirin 81 mg daily. -Continue statin therapy-was just started on Cresto 5mg daily (3) S/P CABG x 3: (4) Heart palpitations: no arrhythmia on tele (5) HLD (hyperlipidemia): Most recent LDL was significantly elevated. -He stopped his atorvastatin 6 months ago due to GI upset. -started on rosuvastatin 5 mg daily on day of admission-titrate up as tolerated to high intensity as outpt Stable for dc to home (6) Right-sided heart failure: reduced right ventricular function on ECHO here, no evidence of volume overload on exam Not changed from previous in 2018 -recommend outpt sleep study Dispo-stable for dc to home Total Time Total Time Spent Total Time Spent (In Minutes): >30 min Total Time Includes: Examination of the Patient, Discharge Planning and Medication Reconciliation Discharge Plan Discharge Items Patient Disposition: Home - Self-Care Reason For Visit: CHEST PAIN Discharge Diagnosis: Chest pain Discharge Goals: Diagnostic testing and Screening Activity: Resume your previous activity Lifting: Gradually increase as tolerated Bathing: No limitations Exercise/Sports: As tolerated Non-emergency contact: Primary Care Provider and Key Worker Call non-emergency contact if: you have any medication questions, your symptoms worsen, your pain is not controlled, your pain is worsening, your pain is unusual for you and your pain is concerning for you Follow-up/Referrals: Percy Bernard MD [Physician] - 04/13/19 12:15 pm (Please, follow up at [facility] in [facility]) with Dr. Bernard on FridayApril 13 at 12:15 pm. *If you need to change this appointment, call the office at [phone].) Myles Rushing MD [Primary Care Provider] - 03/30/19 10:00 am (Please, follow up with Dr. Rushing on FridayMarch 30 at 10:00 am. *If you need to change this appointment, call the office [phone].) Diet: Heart Healthy Add Provider Instructions: You were admitted for chest pain and had normal blood tests to rule out a heart attack. You had a stress test which did show an abnormality that is likely due to your history of having bypass surgery, but is not likely to be consistent with a new blockage. Please follow up with your Key Worker and PCP after discharge as scheduled for you. Prescriptions: Continued citalopram 10 mg Tablet 10 mg PO DAILY Qty: 0 RF: 0 aspirin [Aspirin Low Dose] 81 mg Tablet,Delayed Release (Dr/Ec) 81 mg PO DAILY Qty: 0 RF: 0 nitroglycerin [Nitrostat] 0.4 mg Tablet, Sublingual 0.4 mg sublingual UD PRN (Reason: Chest Pain) Qty: 0 RF: 0 rosuvastatin [Crestor] 5 mg Tablet 5 mg PO DAILY RF: 0 Stand-Alone Forms: [facility] Discharge Orders: Discharge Order (Routine); Ordered 03/24/19 Ordered By: Mi Rivas Admission Data Admit Date/Time: 03/23/19 14:55 Attending Provider: Mi Rivas Admit Provider: Yuriy Merchant Primary Care Provider: Myles Rushing Other Providers: Yuriy Merchant ; Percy Bernard Service: Telemetry Other Pending Studies at Discharge: No
--- NOTE | 2019-04-29 11:39 | Coding Query ---
A supporting diagnosis is required for the test/procedure performed on this patient in order for us to be reimbursed by the patient's insurance. Please provide a supporting diagnosis for the following test/procedure listed below next to the test name along with your signature. *If there is no additional diagnosis for this patient that would support the following test/procedure please document that below next to the test/procedure. Test(s)/Procedure(s) that require a supporting diagnosis: Glycohemoglobin A1C DIAGNOSIS:_CAD, myocardial infarction Provider Signature: _Moose Cummings PA-C Date: _05/06/19 Thank you, GERDA [facility], [facility] Health Information Management Once completed, please kindly fax back to [phone] For questions please call [phone] [facility] CENTERJose
== END 2019-03-24 15:12 | disposition home or self-care (01) ==
LOC: ED 11:51 → 2S 11:51 → SUATTDRO 14:55 → 2S 15:47

== ENCOUNTER 2019-04-19 09:58 | Observation (INO) ==
[2019-04-19] MEDS ORDERED: NiCARDipine HCL INJ 2.5 MG/ML 10 ML AMP ONE (10:57)
[2019-04-19] MEDS ORDERED: MIDAZOLAM HCL 1 MG/ML 2ML VIAL ONE (10:57)
[2019-04-19] MEDS ORDERED: fentaNYL citrate 100 MCG/2 ML VIAL ONE (10:57)
[2019-04-19] MEDS ORDERED: HEPARIN (PORCINE) 1000 UNIT/ML 10 ML (CATH LAB USE ONLY) ONE ×2 (10:57→12:34)
[2019-04-19] MEDS ORDERED: NITROGLYCERIN/D5W 100MCG/ML 20ML SYR ONE (10:58)
[2019-04-19] MEDS ORDERED: CLOPIDOGREL BISULFATE 300 MG TAB ONE (12:34)
--- NOTE | 2019-04-19 12:49 | History & Physical Bridge Note ---
Date of Service April 19, 2019 History & Physical Bridge Note I have examined the patient, reviewed the History & Physical and in the interval since the performance of the History & Physical I have noted the following changes of clinical significance: no changes noted
--- NOTE | 2019-04-19 12:49 | Pre Anesthesia Assessment ---
Date of Service April 19, 2019 Pre Sedation Assessment Vital Signs Temp Pulse Resp BP Pulse Ox 04/19/19 12:45 36.9 C 57 L 16 125/65 97 04/19/19 10:20 36.9 C 57 L 16 141/70 H 97 Cardiovascular RRR, no murmur, no edema Respiratory normal respiratory effort, lungs clear to auscultation Pre-Sedation Airway Assessment Smoking Status: Never smoker Hx Sleep Apnea: No Short, Thick Neck: No Thyromental Distance: > or= 3.5 Finger Breadths Oral Cavity: + WNL Mallampati Class: II ASA: ASA3 NPO Status Date of Last Intake of Fluids: 04/18/19 Time of Last Intake of Fluids: 18:00 Date of Last Intake of Solid Food: 04/18/19 Time of Last Intake of Solid Foods: 18:00 Procedure Planning Contraindications for Sedation: none Current Medications Reviewed: Yes Notes The planned sedation has been discussed with the patient. Informed Consent was obtained. I have identified the patient, determined the appropriateness of sedation and have assessed the patient immediately prior to the procedure. All medicine(s) and interventions are by my order.
--- NOTE | 2019-04-19 12:50 | Post Anesthesia Assessment ---
Date of Service April 19, 2019 Post Sedation Assessment Vital Signs Temp Pulse Resp BP Pulse Ox 04/19/19 12:45 36.9 C 57 L 16 125/65 97 04/19/19 10:20 36.9 C 57 L 16 141/70 H 97 Recovery Score Activity: Moves 4 extremities Respiration: Deep Breath/Cough Circulation: +/-20% PreAnes Value Consciousness: Fully Awake Oxygen Saturation: O2 needed for >90% Discharge Sedation Level of Care: Fast Track Phase II Post Sedation Plan On clinical assessment, the patient appears to have tolerated the sedation without complications. Patient is recovering as anticipated. Patient will continue to be monitored by nursing and may be discharged when sedation discharge criteria are met per below protocol. Upon Completions of procedure and additional 15 minutes continue every 5 minute vital signs and the P.A.R. score; then discharge to a Phase I or Fast Track to Phase II per the following guidelines: * Discharge Patient to appropriate Phase II area if PAR is 8 or greater or return to pre- procedure baseline. The post - procedure orders will be as directed. * If PAR score is less than 8 or not return to pre-procedure baseline then patient will follow Phase I monitoring till PAR is reached for Phase II. The Phase I may be done in procedure room or may call to secure a Phase I area. * If naloxone or flumazenil are used for reversal, hold in Phase I for continued monitoring from when last reversal dose was given for a minimum of 60 minutes or longer pending the nurse and/or physician discretion of patient condition before discharge to Phase II. Please call the Sedation Physician to re-evaluate and complete post-note for discharge to Phase II area. Do NOT discharge from procedure sedation or Phase 1 until post- sedation evaluation note is complete by procedure /sedation MD Sedation Discharge Instructions to be given to the patient at discharge to home.
--- NOTE | 2019-04-19 12:53 | Cardiac Catheterization ---
Cardiac Cath Procedure Full Procedure Date April 19, 2019 Pre-Procedure Diagnosis Pre-Procedure Diagnosis: Angina AUC Score AUC Score: 7 Post-Procedure Diagnosis Post-Procedure Diagnosis: Severe CAD and Successful PCI Procedure(s) Performed Procedure(s) Performed: Coronary Angiography, Drug Eluting Stent and Bypass Graft Angiography Videographer Marques Ramirez MD Manager Nuclear(s) Iva Estimated Blood Loss Estimated Blood Loss: 10 Medication(s) Medication(s): Fentanyl, Heparin, Lidocaine 1%, Nicardipine, Nitroglycerin and Versed Summary of Findings Indication: Refractory angina Access: 6 Fr slender right radial artery Catheters: EBU 3.75 guide, LCB diagnostic catheter Findings: For full details of patient's coronary angiography please cath report dictated by Dr. Bernard on 03/31/2019. Briefly, patient found to have diffusely diseased left main with 50 to 60% stenosis, protected LAD with ostial 70 to 80% stenosis and 70 to 80% stenosis involving ostium of first diagonal. Circumflex with 70 to 80% diffuse proximal to mid disease. Patient unable to tolerate escalating antianginal therapy and brought back today for PCI of left main into circumflex. -- PCI -- Antithrombotic therapy: Heparin, clopidogrel Procedure: Left main cannulated with EBU 3.75 guide Process Control Tech 50 wire passed across lesion into distal circumflex Pro-water wire passed into first diagonal Proximal circumflex lesion predilated with 2.5 compliant balloon Ostium of first diagonal dilated with 2.0 compliant balloon Left main to mid circumflex stented with 3.0 x 30 mm David drug-eluting stent LAD/first diagonal rewired with pilot plant research technician 50 wire Stent post-dilated with 3.0 noncompliant balloon Proximal aspect of stent in LM dilated with 4.0 NC balloon. IC vasodilators administered for spasm Post procedure BENITA 3 flow, stent well expanded with minimal residual stenosis and no apparent cardiac complications. Arterial Closure: TR band Summary: 1. Successful PCI of left main into mid circumflex with single drug-eluting stent (3.0 x 30 mm [place]; postdilated with 3.0 and 4.0 NC balloons). 2. Successful angioplasty of ostium of 1st diagonal with 2.0 balloon. Recommendations: To PCU for continued monitoring Loaded with clopidogrel 600 mg in film laboratory technician Continue dual-antiplatelet therapy for at least 6 months Continue statin, and ASCVD risk factor modification Consult cardiac Rehab Hemodynamics Rest Ao:: 104/52/74 Final Ao: 95/47/71 LV: -- Recommendations Recommendations: PCI without planned CABG Specimens Specimens: None Radiation Exposure (mGy) 4610 Contrast (mls) 130 Drains Drains: none Anesthesia moderate Procedural Complication(s) None Disposition PCU ACC Data: Sandblast Carver Cardiac Status Clinical evaluation leading to the procedure CAD Presenation: Stable angina Anginal Classification: CCS III Heart Failure: No Cardiogenic Shock within 24 Hours: No Cardiac Arrest within 24 Hours: No Imaging Studies Past 6 Months: Yes Stress Studies Past 6 Months: No Diagnostic Physicians Name: Marques Ramirez MD Status: Elective Closure Device Percutaneous Entry Location: Radial Closure Device: Radial Band Recommendations: PCI without planned CABG PCI Indication: Stable Angina Lesion Segment Name: LM/proximal circumflex Culprit Artery: Yes Stenosis Prior to Rx (%): 80 Chronic Total Occlusion: No IVUS: No Pre-Procedure BENITA Flow: 3 Previously Treated Lesion: No Lesion Complexity: High/C Lesion Length (mm): 26 Thrombus Present: No Bifurcation Lesion: Yes Guidewire Across Lesion: Stenosis Post-Procedure (%): 0 Post-Procedure BENITA Flow: 3 Devices(s) Deployed: Yes Yes Intraprocedure Events Significant Disection: No Perforation: No
[2019-04-19] MEDS ORDERED: ONDANSETRON INJ 2 MG/ML 2 ML VIAL IV PRN (13:04)
[2019-04-19] MEDS ORDERED: NITROGLYCERIN SL 0.4 MG/TAB TAB SL PRN (13:06)
[2019-04-19] MEDS ORDERED: SODIUM CHLORIDE 0.9% 1000ML 1,000 ML IV SCH (13:15)
[2019-04-19] MEDS: RANOLAZINE 500 MG ER TAB PO SCH (21:10)
[2019-04-20 06:15] LABS: Basophils # (auto) 0.02 K/uL (0-0.2); Basophils % (auto) 0.3 %; Eosinophils # (auto) 0.25 K/uL (0-0.5); Hematocrit (blood only) 45.2 % (42-52); Hemoglobin 16.3 g/dL (14.0-18.0); Lymphocytes # (auto) 1.17 K/uL (1.2-3.4); Lymphocytes % (auto) 18.7 %; Mean Corpuscular Hgb Conc 36.1 g/dL (32-36); Mean Corpuscular Volume 90.2 fL (80-100); Mean Platelet Volume 10.6 fL (7.4-10.4); Monocytes # (auto) 0.54 K/uL (0.11-0.59); Monocytes % (auto) 8.6 %; Neutrophils # (auto) 4.28 K/uL (1.4-6.5); Neutrophils % (auto) 68.4 %; Nucleated RBC # (auto) 0.06 K/uL (0-0); Platelet Count 142 K/uL (130-400); RDW Coefficient of Variation 13.2 % (11.5-14.5); RDW Standard Deviation 43.3 fL (36.4-46.3); Red Blood Count 5.01 M/uL (4.7-6.1); White Blood Count 6.26 K/uL (4.8-10.8)
--- NOTE | 2019-04-20 07:56 | Discharge Summary ---
Date of Service April 20, 2019 Admission HPI Per Admitting Provider Mr. Patton is a very pleasant 68-year-old man with a history of coronary artery disease post prior PCI with stent to LAD and three-vessel CABG (HOUSE to LAD, vein graft to ramus, vein graft to OM), hypertension, dyslipidemia who presented for planned PCI. Patient followed by Dr. Bernard as an outpatient. He has been experiencing refractory angina despite maximal antianginal therapy. Recently underwent repeat cardiac catheterization which showed occluded vein graft to OM and previously noted distal left main/ostial circumflex disease. Specialty Data Cardiology 1. Successful PCI of left main into mid circumflex with single drug-eluting stent (3.0 x 30 mm David; postdilated with 3.0 and 4.0 NC balloons) Discharge Data Procedures Performed Operation Date: 04/19/19 11:00 Actual Procedures p Drug Eluting Stent SGl Vessel - Gilberto Ramirez MD s Cineradiography w/Routine Exam - Gilberto Ramirez MD s POBA SGL Vessel - Gilberto Ramirez MD Hospital Course (1) CAD (coronary artery disease): Patient underwent planned PCI to distal left main/proximal circumflex via right radial artery. A single drug-eluting stent was placed from left main to mid circumflex (3.0 x 30 mm [place]). Also underwent angioplasty to ostium of first diagonal with 2.0 balloon. Post procedure he was admitted to telemetry for observation. Telemetry unremarkable. Had no recurrent chest pain. A.m. of discharge was feeling well. Follow-up labs unremarkable. Mild ecchymosis at right radial artery access site but no other apparent complications. Patient discharged home on aspirin and Plavix. Per patient request Ranexa discontinued and resumed on prior citalopram. Has scheduled follow-up with Dr. Bernard in 3 weeks. Discharge Instructions Home Medications aspirin [Aspirin Low Dose] 81 mg PO DAILY #0 03/05/18 [History Confirmed 04/19/19] nitroglycerin [Nitrostat] 0.4 mg SUBLINGUAL UD PRN #0 btl 03/05/18 [History Confirmed 04/19/19] rosuvastatin [Crestor] 5 mg PO DAILY 03/23/19 [History Confirmed 04/19/19] citalopram 20 mg PO DAILY #30 tab 04/20/19 [Rx] clopidogrel 75 mg PO QAM #30 tab 04/20/19 [Rx]
[2019-04-20] MEDS: RANOLAZINE 500 MG ER TAB PO SCH (08:34)
[2019-04-20] MEDS ORDERED: ROSUVASTATIN CALCIUM 5 MG TAB PO SCH (09:00)
[2019-04-20] MEDS ORDERED: ASPIRIN 81 MG ECTAB PO SCH (09:00)
[2019-04-20] MEDS ORDERED: SERTRALINE HCL 50 MG TABLET PO SCH (09:00)
[2019-04-20] MEDS ORDERED: CLOPIDOGREL BISULFATE 75 MG TAB PO SCH (09:00)
== END 2019-04-20 09:35 | disposition home or self-care (01) ==
LOC: CC 09:58 → 2S 09:58

== ENCOUNTER 2019-08-11 06:14 | Observation (INO) ==
[2019-08-11] MEDS ORDERED: ASPIRIN CHEW 324 MG PO STA (06:53)
[2019-08-11] MEDS ORDERED: NITROGLYCERIN SL 0.4 MG/TAB TAB SL STA (06:54)
[2019-08-11 07:08] LABS: Basophils # (auto) 0.03 K/uL (0-0.2); Basophils % (auto) 0.8 %; Eosinophils # (auto) 0.16 K/uL (0-0.5); Eosinophils % (auto) 4.1 %; Hematocrit (blood only) 43.2 % (42-52); Hemoglobin 15.1 g/dL (14.0-18.0); Lymphocytes % (auto) 25.7 %; Mean Corpuscular Hemoglobin 32.2 pg (25-34); Mean Corpuscular Volume 92.1 fL (80-100); Mean Platelet Volume 10.7 fL (7.4-10.4); Monocytes # (auto) 0.43 K/uL (0.11-0.59); Monocytes % (auto) 11.1 %; Neutrophils # (auto) 2.27 K/uL (1.4-6.5); Neutrophils % (auto) 58.3 %; Platelet Count 135 K/uL (130-400); RDW Coefficient of Variation 12.8 % (11.5-14.5); RDW Standard Deviation 42.9 fL (36.4-46.3); Red Blood Count 4.69 M/uL (4.7-6.1); White Blood Count 3.89 K/uL (4.8-10.8)
[2019-08-11] MEDS ORDERED: ACETAMINOPHEN 500 MG TAB PO STA (07:19)
[2019-08-11 07:25] LABS: Alanine Aminotransferase 25 U/L (12-78); Albumin Level 3.9 gm/dl (3.4-5.0); Aspartate Aminotransferase 18 U/L (15-37); Blood Urea Nitrogen 21 mg/dl (7-18); Calcium 8.8 mg/dl (8.5-10.1); Carbon Dioxide 27 mmol/L (21-32); Chloride 108 mmol/L (98-107); Creatinine Clr Calc Pharmacy 71.1 ml/min; Est GFR (African American) 69.3; Est GFR (Non-African American) 59.8; Glucose 95 mg/dl (70-99); Lipase 165 U/L (73-393); Magnesium 2.2 mg/dl (1.8-2.4); Potassium 3.8 mmol/L (3.5-5.1); Sodium 141 mmol/L (136-145)
--- NOTE | 2019-08-11 07:29 | CT Scan Report ---
CT OF THE CHEST WITHOUT IV CONTRAST CLINICAL HISTORY: L sided chest pain for 3 months; hx of stent COMPARISON STUDY: Chest CT August 05, 2015. Chest radiograph March 23, 2019. CT DOSE: 578.01 mGy.cm TECHNIQUE: Axial images of the chest were obtained without IV contrast. Images were reviewed in the axial, sagittal, and coronal planes. IV contrast was not administered for this examination. Automat ed exposure control was utilized for the study. A dose lowering technique was utilized adhering to t he principles of ALARA. FINDINGS: No enlarged axillary, mediastinal or hilar lymph nodes are present. There are median mcdaniel otomy wires and postoperative findings from bypass grafting. The heart is mildly enlarged. There is n o pericardial effusion. The central airways are patent. There is no consolidation to suggest pneumoni a. A 4 mm right upper lobe nodule on image 132 of [address] of July 26, 2015. The re is no pneumothorax or pleural effusion. A few calcified granulomas are noted as well as calcified right hilar lymph nodes. There are calcified granulomas within the spleen. No thoracic spine or rib f racture is noted. No suspicious osseous lesions are noted within visualized skeletal structures. Gall stone within the gallbladder is noted. IMPRESSION: 1. No acute findings within the chest. 2. Mild cardiomegaly. Extensive coronary artery calcification. Electronically signed by: Tavo Greer M.D. 08/11/2019 7:28 AM
[2019-08-11 07:36] LABS: Albumin Globulin Ratio 1.2 (0.9-2); Alkaline Phosphatase 70 U/L (45-117); Bilirubin,Total 1.2 mg/dl (0.2-1); Creatine Kinase 60 U/L (39-308); Creatine Kinase MB 1.7 ng/ml (0.5-3.6); Globulin 3.3 gm/dl (2.5-4.0); Thyroid Stimulating Hormone 0.965 uIu/ml (0.300-4.500); Total Protein 7.2 gm/dl (6.4-8.2); Troponin I < 0.015 ng/ml (0-0.045)
[2019-08-11] MEDS ORDERED: SODIUM CHLORIDE 0.9% 1000ML 1,000 ML IV ONE (07:47)
[2019-08-11] MEDS ORDERED: CLOPIDOGREL BISULFATE 75 MG TAB PO ONE (08:56)
--- NOTE | 2019-08-11 09:08 | Emergency Department Note ---
ED Visit Note This patient was seen in concert with Dr. Sherwood and we discussed and agreed upon the history, physical, assessment and plan. See attending's note for details. . Resident Activity Tracking Resident Involvement: Resident Care Provided Care Provided: Adult ED
--- NOTE | 2019-08-11 09:27 | Cardiology Consultation ---
Date of Consultation August 11, 2019 Assessment & Plan (1) Atypical chest pain: Chest pain is atypical in that it has been present since May with negative enzymes. ECG without ischemic changes. It is however the same exact symptom that he felt prior to his last PCI. We discussed possible evaluation and he prefers invasive approach. Cardiac catheterization discussed in detail. Risks and benefits discussed. He was made aware that CT surgery is not available at this facility. He continues to have chest pain now but once again without objective data to suggest ongoing ischemia. (2) Dyspnea on exertion: This also improved in the past following PCI and angioplasty of his D1. Recommend cardiac catheterization given the fact that his symptoms are the same as prior to PCI. As above. (3) CAD in [place] artery: Status post CABG x3 and also PCI of left main into circumflex and POBA of D1. Continue aspirin 81 mg daily. Continue Plavix. He was instructed to be more compliant with his anti-platelet therapy. Continue statin therapy. He is not on a beta-breanna due to bradycardia in the past. (4) Benign essential hypertension: Blood pressure adequately controlled. (5) S/P CABG x 3: SVG to OM occluded. House to LAD and SVG to ramus patent on March 2019 cardiac catheterization. (6) H/O heart artery stent: Dual anti-platelet therapy as above. (7) HLD (hyperlipidemia): Continue statin therapy. He is tolerating Crestor 10 mg daily. Consider high-intensity statin therapy if tolerated. Disposition: Will discuss with Dr. Ramirez of interventional Cardiology in regards to cardiac catheterization as I am in the office today. Case also discussed with emergency department resident. Dr. Francisco will also be notified. Highly complex medical issues. Thank you for allowing me to participate in the care of your patient. Please call for any other questions or concerns. Sincerely, Kevin Bernard M.D. History of Present Illness Reason for Consultation: Chest Pain Requesting Physician: Dr. Sherwood Attending Physician: Dr. Sherwood History of Present Illness Mr. Patton is a very pleasant 69-year-old gentleman with a history significant for CAD, LAD PCI, hypertension, and dyslipidemia. In 2014 he experienced angina which consisted of a left-sided chest burning with shortness of breath and diaphoresis. It occurred after eating and also while working. He underwent stress testing, which was abnormal, prompting coronary angiography. Severe CAD involving the LAD was noted and he underwent PCI. His angina symptoms resolved. He then underwent CABG x3 in November of 2017. Following CABG, he did have some depression issues. He has had the following studies/procedures: 1. Stress echo 07/27/2015: Abnormal stress echo demonstrating akinesis of the apex, anterior, anteroseptal, and anterolateral nguyen, concerning for LAD ischemia resting EF 55% with normal wall motion. Exercised 4 minutes and 30 seconds on Arturo protocol. 90% MPHR. Chest pain with exercise. 2. Cardiac catheterization 07/27/2015: Ostial LAD 20%. Mid LAD 90%. 3 x 18 mm resolute CHELSEA mid LAD. Small step-down reported. 3. Stress echo 10/09/2015: Normal stress echo and ECG at 95% MPHR. Exercised 9 minutes on Arturo protocol. Hypertensive response to exercise. 4. Stress Echo 11/04/2017: Abnormal stress echo suggesting distal LAD ischemia at 92% MPHR. 8 minutes Arturo protocol. Chest pressure reported 6 minutes into exercise, resolving 1 minutes into recovery. Normal LV size and systolic function. EF 60-65%. Mild LVH. No significant valvular abnormalities. 5. Cardiac catheterization 11/13/2017: Severe LMCA CAD. Ostial LAD 70%. Proximal LAD 30%. Mid LAD stent patent. Distal to mid LAD stent haziness with 60-70%. Proximal circumflex 80-90%. Mid circumflex 30%. Proximal RCA 20%. Mid RCA 40%. Distal RCA 20%. Ostial ramus 70%. LVEDP 12. 6. CABG x3 at [facility] 12/02/2017: HOUSE to LAD; SVG to ramus; SVG to distal circumflex. 7. Echo 12/12/2017: Normal LV size, systolic function, wall motion. EF 60-65%. Septal motion consistent with cardiac surgery. Mild LVH. Type 2 diastolic dysfunction. Mildly reduced RV systolic function. No significant valvular abnormalities. 8. Holter 01/27/2018: Sinus rhythm with average heart rate 79. Occasional PACs. Rare PVCs. Patient symptoms no clear arrhythmia correlate. 9. Stress echo 03/24/2019: No augmentation of the septal wall during peak exertion. Negative ECG. Hypertensive response to exercise. 6 minutes 41 seconds Arturo protocol. 93% MPHR. 10. Echo 03/24/2019: Normal LV size, wall motion, systolic function. EF 60- 65%. Mild right atrial dilation. Reduced RV systolic function. 11. Cardiac catheterization 03/31/2019: Diffusely diseased LMCA 50-70% stenosis. Ostial LAD 70-80%. Late mid LAD 50-70%, distal to prior mid LAD stent. Patent mid LAD stent. Ostial diagonal 70-80%. Proximal circumflex 60- 80%. Mid circumflex 40%. Ostial RCA 50%. Mid RCA 50% followed by diffuse 40%. Distal RCA diffuse 30%. Ostial ramus 100%. House to LAD patent. SVG to ramus patent. SVG to OM occluded. LVEDP 9. No aortic stenosis. Interventional cardiology recommends optimizing medical therapy with consideration for PCI if no improvement. 12. Cardiac catheterization/PCI 04/19/2019: Elective PCI of LMCA into circumflex. LMCA to mid circumflex stented with 3 x 30 mm irma CHELSEA. Proximal aspect of stent within LM CA dilated with 4 mm noncompliant balloon. Angioplasty of ostial D1 with 2 mm balloon. Cardiology was consulted from the emergency department due to chest pain. His daughter notified the office yesterday that he has been having chest discomfort since May. He did not call for evaluation. Nursing staff contacted him and he was driving near [place]. Because he was having active chest pain, it was advised that he go to the nearest emergency department. He declined and stated that he would come to [facility] Emergency Department when he returned home. He came early this morning. 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 The chest discomfort is exactly the same symptoms that he had prior to his last PCI. After PCI, the symptoms completely resolved. It is a lazy and inflamed type feeling in his left chest. There is no radiation. At times he can have pressure in his neck and jaw but this occurs at any time and last only a few minutes. The chest discomfort however has been constant since May without trigger or resolution. He also developed dyspnea with exertion. This also resolved following his recent PCI in April until May when it once again occurred near the time of his chest discomfort. He denies shortness of breath at rest, orthopnea, syncope, near-syncope, palpitations, or bleeding such as melena, hematochezia, or hematuria. He has occasional lightheadedness when changing positions any stated that his legs swell sometimes, once again starting in May. Blood pressure at home has been well controlled with systolic blood pressure in the 120s and diastolic in the 70s to 80s. He states that he stop taking Plavix this past weekend as he was anticipating coming to the ER for a cardiac catheterization. He has been compliant with aspirin. He last consume food last evening. Review of systems: As above. Review of systems otherwise neg ative/unremarkable. Family history: No known premature CAD in first-degree relatives. Paternal uncles suddenly in 60s or 70s. Social history: Denies tobacco, alcohol, or drug abuse. and lives at home with his . Has 2 daughters, Gloria and Sheryl, who are BACK TEND[employer]'s with [employer] [place] and 1 son. His children live locally. 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 His and son are at the bedside. Allergies Allergy/AdvReac Type Severity Reaction Status Date / Time lisinopril AdvReac Mild COUGH Verified 08/11/19 06:43 loratadine AdvReac Mild HEADACHE Verified 08/11/19 06:43 Home Medications Home Medications Medication Instructions Recorded Confirmed Type aspirin [Aspirin Low Dose] 81 mg PO QPM #0 03/05/18 08/11/19 History clopidogrel 75 mg PO QAM #30 tab 04/20/19 08/11/19 Rx nitroglycerin 0.4 mg sublingual 0.4 mg SUBLINGUAL UD PRN #25 tab 05/13/19 08/11/19 Rx tablet citalopram 20 mg PO QPM 08/11/19 08/11/19 History rosuvastatin 10 mg PO QPM 08/11/19 08/11/19 History Patient History Medical History CAD (coronary artery disease) HLD (hyperlipidemia) Benign essential HTN Anxiety High cholesterol Hypertension Surgical History S/P CABG x 3 H/O heart artery stent S/P triple vessel bypass Social History Preferred Language: Bulgarian Communication Ability: Effective Beliefs That Will Affect Care: None marital status: Current Living Situation: Spouse Feels Safe at Home: Yes Smoking Status: Never smoker Hx Alcohol Use: No Hx Substance Use: No Physical Exam Physical Exam: Gen.: No acute distress. Alert and oriented. HEENT: Anicteric sclera. Neck: No JVD. No bruit. Normal carotid upstrokes. Cardiac: PMI was nonpalpable. No ventricular heave. Regular, without ectopy. Normal S1-S2. No murmurs, rubs, or gallops. Pulmonary: Clear to auscultation bilaterally without wheezes, rales, or rhonchi. Abdomen: Soft, nontender, nondistended, with normoactive bowel sounds. No bruits noted. Extremities: 2+ radial pulses bilaterally. 2+ posterior tibialis pulses bilaterally. No significant pitting edema or cyanosis. Psychiatric: Affect appears appropriate. Chest: Tender to palpation in left chest, but different than the chest pain he describes above. Results & Data Vital Signs (Past 12 Hours) Vital Signs Temp Pulse Resp BP Pulse Ox 08/11/19 08:30 50 L 13 123/73 08/11/19 08:00 58 L 19 126/76 08/11/19 07:30 59 L 16 123/80 08/11/19 07:17 53 L 16 132/76 08/11/19 07:00 58 L 15 134/78 08/11/19 06:32 57 L 17 98 08/11/19 06:31 98 08/11/19 06:30 60 15 131/82 98 08/11/19 06:26 59 L 17 141/84 H 98 08/11/19 06:18 36.4 C L 63 18 135/82 98 Laboratory Results Laboratory Results - last 24 hr 08/11/19 08/11/19 08/11/19 06:53 06:53 06:53 WBC 3.89 L RBC 4.69 L Hgb 15.1 Hct 43.2 MCV 92.1 MCH 32.2 MCHC 35.0 RDW Std Deviation 42.9 RDW Coeff of Antonio 12.8 Plt Count 135 MPV 10.7 H Immature Gran % (Auto) 0.0 Neut % (Auto) 58.3 Lymph % (Auto) 25.7 [place] % (Auto) 11.1 Eos % (Auto) 4.1 Baso % (Auto) 0.8 Immature Gran # (Auto) 0.00 Neut # (Auto) 2.27 Lymph # (Auto) 1.00 L [place] # (Auto) 0.43 Eos # (Auto) 0.16 Baso # (Auto) 0.03 Sodium 141 Potassium 3.8 Chloride 108 H Carbon Dioxide 27 Anion Gap 6.0 BUN 21 H Creatinine 1.24 Est Cr Clr Drug Dosing 71.1 Est GFR ( Amer) 69.3 Est GFR (Non-Af Amer) 59.8 BUN/Creatinine Ratio 17.0 Glucose 95 Calcium 8.8 Magnesium 2.2 Total Bilirubin 1.2 H AST 18 ALT 25 Alkaline Phosphatase 70 Total Creatine Kinase 60 CK-MB (CK-2) 1.7 CK/CKMB % Calc 2.8 Troponin I < 0.015 Cancelled Total Protein 7.2 Albumin 3.9 Globulin 3.3 Albumin/Globulin Ratio 1.2 Lipase 165 TSH 0.965 08/11/19 08/11/19 08/11/19 06:53 06:53 06:53 WBC RBC Hgb Hct MCV MCH MCHC RDW Std Deviation RDW Coeff of [place] Plt Count MPV Immature Gran % (Auto) Neut % (Auto) Lymph % (Auto) [place] % (Auto) Eos % (Auto) Baso % (Auto) Immature Gran # (Auto) Neut # (Auto) Lymph # (Auto) [place] # (Auto) Eos # (Auto) Baso # (Auto) Sodium Potassium Chloride Carbon Dioxide Anion Gap BUN Creatinine Est Cr Clr Drug Dosing Est GFR ( Amer) Est GFR (Non-Af Amer) BUN/Creatinine Ratio Glucose Calcium Magnesium Cancelled Total Bilirubin AST ALT Alkaline Phosphatase Total Creatine Kinase CK-MB (CK-2) CK/CKMB % Calc Troponin I Total Protein Albumin Globulin Albumin/Globulin Ratio Lipase Cancelled TSH Cancelled Diagnostic Findings ECG personally reviewed: ECG 08/11/2019: Sinus bradycardia 56 bpm. Septal infarct. Cannot rule out inferior infarct. Cardiac catheterization reports on 03/21/2019 and 04/19/2019 reviewed. Cardiac Cath 03/31/19: Coronary angiography: 1. Left main coronary artery: The LMCA is very short in length in appears calcified. LMCA appears diffusely diseased with 50-70% stenosis (previously noted to be 60-70% via IVUS on 11/13/2017). 2. Left anterior descending: Ostial LAD 70-80%. Late mid LAD 50-70% distal to prior mid LAD stent. Mid LAD stent patent. Ostial diagonal 70-80% stenosis visually. HOUSE to mid LAD is noted to fill retrograde with LMCA injection. BENITA 2 flow. 3. Circumflex: The circumflex is a medium caliber vessel. Proximal circumflex visually 60-80% but not well visualized. (proximal circumflex noted to have 80- 90% stenosis via IVUS on 11/13/2017). Mid circumflex 40%. Small to medium caliber OM1 without significant CAD. Distal circumflex is a small caliber vessel. 4. Right coronary artery: The RCA is large and dominant. Ostial RCA 50%. Proximal RCA diffuse luminal irregularities. Mid RCA focal 50% stenosis followed by diffuse 40% stenosis. Distal RCA diffuse 30% stenosis. Large PL and PDA without significant CAD. BENITA 3 flow throughout the RCA system. 5. Ramus intermedius: Ostial ramus 100%. Ramus fills via SVG. Bypass graft angiography: 1. HOUSE to LAD: HOUSE to mid LAD is patent. 2. SVG to ramus: SVG is patent. 3. SVG to OM (per surgical report): SVG was unable to be selectively engaged. Aortography was performed and SVG was not visualized. SVG appears to be occluded. Left heart catheterization: 1. Left ventriculography was not performed. 2. No aortic stenosis. Peak to peak gradient across the aortic valve is 0. 3. Normal LVEDP; 9mmHg. Supravalvular aortography: 1. Aortography was performed to help visualize the remaining SVG to OM. 2. [place] RCA, LMCA, and SVG to ramus were visualized. 3. SVG to OM was not visualized, and appears to be occluded. 4. No aortic regurgitation. 5. No significant aortic aneurysm noted. The proximal descending thoracic aorta may be slightly dilated. 6. No aortic dissection noted. PCI 04/19/19: 1. Successful PCI of left main into mid circumflex with single drug-eluting stent (3.0 x 30 mm [place]; postdilated with 3.0 and 4.0 NC balloons). 2. Successful angioplasty of ostium of 1st diagonal with 2.0 balloon. PG Care Time/CCT Total # of Minutes Spent Total Time Spent with Patient: Total time spent is greater than 50% in [facility] of care (as documented) at patient's floor/unit and/or counseling patient:
[2019-08-11] MEDS ORDERED: PROCHLORPERAZINE 1 ML IV ONE (12:35)
[2019-08-11] MEDS ORDERED: DiphenhydrAMINE HCL 50 MG/ML VIAL IV STA (12:35)
[2019-08-11] MEDS ORDERED: MAGNESIUM SULFATE / D5W 1 GM/100 ML BAG IV ONE (12:35)
[2019-08-11] MEDS ORDERED: MIDAZOLAM HCL 1 MG/ML 2ML VIAL ONE (13:30)
[2019-08-11] MEDS ORDERED: fentaNYL citrate 100 MCG/2 ML VIAL ONE (13:30)
[2019-08-11] MEDS ORDERED: NITROGLYCERIN/D5W 100MCG/ML 20ML SYR ONE (14:00)
[2019-08-11] MEDS ORDERED: ATROPINE SULFATE 0.1 MG/ML 10ML SYR IV ONE (14:01)
[2019-08-11] MEDS ORDERED: HEPARIN (PORCINE) 1000 UNIT/ML 10 ML (CATH LAB USE ONLY) ONE (14:31)
--- NOTE | 2019-08-11 15:16 | Post Anesthesia Assessment ---
Date of Service August 11, 2019 Post Sedation Assessment Vital Signs Temp Pulse Resp BP Pulse Ox 08/11/19 13:31 67 12 134/83 97 08/11/19 13:25 97 08/11/19 13:00 53 L 14 146/82 H 08/11/19 12:30 54 L 17 140/86 08/11/19 12:00 50 L 12 148/82 H 08/11/19 11:30 49 L 14 140/80 08/11/19 11:00 48 L 17 134/79 08/11/19 10:30 48 L 15 142/80 H 08/11/19 10:00 45 L 15 136/81 08/11/19 09:30 53 L 12 132/77 08/11/19 09:00 49 L 14 129/77 08/11/19 08:30 50 L 13 123/73 08/11/19 08:00 58 L 19 126/76 08/11/19 07:30 59 L 16 123/80 08/11/19 07:17 53 L 16 132/76 08/11/19 07:00 58 L 15 134/78 08/11/19 06:32 57 L 17 98 08/11/19 06:31 98 08/11/19 06:30 60 15 131/82 98 08/11/19 06:26 59 L 17 141/84 H 98 08/11/19 06:18 97.5 F L 63 18 135/82 98 Recovery Score Activity: Moves 4 extremities Respiration: Deep Breath/Cough Circulation: +/-20% PreAnes Value Consciousness: Fully Awake Oxygen Saturation: O2 needed for >90% Discharge Sedation Level of Care: Fast Track Phase II Post Sedation Plan On clinical assessment, the patient appears to have tolerated the sedation without complications. Patient is recovering as anticipated. Patient will continue to be monitored by nursing and may be discharged when sedation discharge criteria are met per below protocol. Upon Completions of procedure and additional 15 minutes continue every 5 minute vital signs and the P.A.R. score; then discharge to a Phase I or Fast Track to Phase II per the following guidelines: * Discharge Patient to appropriate Phase II area if PAR is 8 or greater or return to pre- procedure baseline. The post - procedure orders will be as directed. * If PAR score is less than 8 or not return to pre-procedure baseline then patient will follow Phase I monitoring till PAR is reached for Phase II. The Phase I may be done in procedure room or may call to secure a Phase I area. * If naloxone or flumazenil are used for reversal, hold in Phase I for continued monitoring from when last reversal dose was given for a minimum of 60 minutes or longer pending the nurse and/or physician discretion of patient condition before discharge to Phase II. Please call the Sedation Physician to re-evaluate and complete post-note for discharge to Phase II area. Do NOT discharge from procedure sedation or Phase 1 until post- sedation evaluation note is complete by procedure /sedation MD Sedation Discharge Instructions to be given to the patient at discharge to home.
--- NOTE | 2019-08-11 15:16 | Pre Anesthesia Assessment ---
Date of Service August 11, 2019 Pre Sedation Assessment Vital Signs Temp Pulse Resp BP Pulse Ox 08/11/19 13:31 67 12 134/83 97 08/11/19 13:25 97 08/11/19 13:00 53 L 14 146/82 H 08/11/19 12:30 54 L 17 140/86 08/11/19 12:00 50 L 12 148/82 H 08/11/19 11:30 49 L 14 140/80 08/11/19 11:00 48 L 17 134/79 08/11/19 10:30 48 L 15 142/80 H 08/11/19 10:00 45 L 15 136/81 08/11/19 09:30 53 L 12 132/77 08/11/19 09:00 49 L 14 129/77 08/11/19 08:30 50 L 13 123/73 08/11/19 08:00 58 L 19 126/76 08/11/19 07:30 59 L 16 123/80 08/11/19 07:17 53 L 16 132/76 08/11/19 07:00 58 L 15 134/78 08/11/19 06:32 57 L 17 98 08/11/19 06:31 98 08/11/19 06:30 60 15 131/82 98 08/11/19 06:26 59 L 17 141/84 H 98 08/11/19 06:18 97.5 F L 63 18 135/82 98 Cardiovascular RRR, no murmur, no edema Respiratory normal respiratory effort, lungs clear to auscultation Pre-Sedation Airway Assessment Smoking Status: Never smoker Hx Sleep Apnea: No Hx Difficult Intubation: No Short, Thick Neck: No Mallampati Class: III ASA: ASA3 NPO Status Date of Last Intake of Fluids: 08/10/19 Time of Last Intake of Fluids: 21:00 Date of Last Intake of Solid Food: 08/10/19 Time of Last Intake of Solid Foods: 21:00 Procedure Planning Contraindications for Sedation: none Current Medications Reviewed: Yes Notes The planned sedation has been discussed with the patient. Informed Consent was obtained. I have identified the patient, determined the appropriateness of sedation and have assessed the patient immediately prior to the procedure. All medicine(s) and interventions are by my order.
[2019-08-11] MEDS ORDERED: ACETAMINOPHEN 325 MG TAB PO PRN (15:27)
[2019-08-11] MEDS ORDERED: ONDANSETRON INJ 2 MG/ML 2 ML VIAL IV PRN (15:27)
--- NOTE | 2019-08-11 15:27 | Cardiac Catheterization ---
[facility] Data: Registered Nurse Post Partum Cardiac Status Clinical evaluation leading to the procedure CAD Presenation: Unstable angina Anginal Classification: CCS IV Heart Failure: No Cardiogenic Shock within 24 Hours: No Cardiac Arrest within 24 Hours: No Imaging Studies Past 6 Months: Yes Stress Studies Past 6 Months: Yes Stress Echocardiogram: Yes - Negative Diagnostic Physicians Name: Marques Ramirez MD Status: Elective Closure Device Percutaneous Entry Location: Radial Closure Device: Mynx Recommendations: Medical Therapy and/or Counseling Intraprocedure Events Significant Disection: No Perforation: No Cardiac Cath Procedure Full Procedure Date August 11, 2019 Pre-Procedure Diagnosis Pre-Procedure Diagnosis: Cardiothoracic Symptom AUC Score AUC Score: 7 Post-Procedure Diagnosis Post-Procedure Diagnosis: Moderate CAD Procedure(s) Performed Procedure(s) Performed: Coronary Angiography, IVUS, Bypass Graft Angiography and Femoral Artery Angiography Sock Examiner Marques Ramirez MD Receiving Lead(s) Alia Dupree Estimated Blood Loss Estimated Blood Loss: 10 Medication(s) Medication(s): Fentanyl, Heparin, Lidocaine 1%, Nicardipine, Nitroglycerin and Versed Summary of Findings Indication: Refractory chest pain, history of coronary artery disease post bypass and stenting from left main into circumflex Access: 6 Fr right common femoral artery Catheters: JL4, JR4, JL4 guide Findings: LM -Short with stent extending nearly back to the ostium, stent mildly narrowed at ostium of circumflex LAD -ostial stenosis 50 to 60%, mid LAD patent, ostial diagonal with 40 to 50% ostial stenosis. Competitive flow from HOUSE and mid LAD. Distal LAD with luminal irregularities Circumflex -moderate caliber vessel, widely patent stent to mid segment. Small ramus with diffuse disease. Small distal circumflex with luminal irregularities. RCA -large caliber vessel, dominant, 40% ostial, 50 to 60% focal mid RCA stenosis. Distal luminal irregularities IVUS of left main into circumflex stent Left main cannulated with JL 4 guide BMW wire placed in the distal circumflex [place] IVUS catheter placed distal to stent IVUS revealed widely patent stent with minimal in-stent narrowing at distal left main. Ostium of left main with mild calcified disease. Post procedure angiography revealed no apparent complications. Arterial Closure: Mynx Summary: 1. Multivessel [place] coronary artery disease -50 to 60% ostial LAD, severe disease in small ramus, 50% first diagonal, 50 to 60% mid RCA. 2. Patent left main into circumflex stent 3. Patent HOUSE to LAD, SVG to ramus Recommendations: No coronary artery disease to explain constant rest pain. Evaluate for noncardiac causes of chest pain Continued ASCVD risk factor modification Follow-up with Dr. Bernard Hemodynamics Rest Ao:: 117/62/100 Final Ao: 131/64/91 LV: -- Recommendations Recommendations: Medical Therapy and/or Counseling Specimens Specimens: None Radiation Exposure (mGy) 1828 Contrast (mls) 130 Fluids (cc crystalloids) Fluids (cc crystalloids): 140 Drains Drains: None Anesthesia Moderate Procedural Complication(s) None Disposition PCU I attest to the content of the Intraoperative Record and any orders documented therein. Any exceptions are noted below.
[2019-08-11] MEDS ORDERED: SODIUM CHLORIDE 0.9% 1000ML 1,000 ML IV SCH (15:30)
[2019-08-11] MEDS ORDERED: NITROGLYCERIN SL 0.4 MG/TAB TAB SL PRN (15:32)
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
[2019-08-11] MEDS ORDERED: KETOROLAC TROMETHAMINE 15 MG/ML VIAL IV PRN (18:07)
[2019-08-11] MEDS ORDERED: ALUMINUM/MAGNESIUM SUSP 18 ML, LIDOCAINE HCL VISCOUS 2% 6 ML, BARCODE IDENTIFIER 1 EA PO ONE (18:07)
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
[2019-08-11] MEDS ORDERED: ROSUVASTATIN CALCIUM 5 MG TAB PO SCH (21:00)
[2019-08-11] MEDS ORDERED: CITALOPRAM 20 MG TAB PO SCH (21:00)
[2019-08-12 06:30] LABS: Basophils # (auto) 0.02 K/uL (0-0.2); Basophils % (auto) 0.5 %; Eosinophils # (auto) 0.13 K/uL (0-0.5); Eosinophils % (auto) 3.1 %; Hematocrit (blood only) 40.8 % (42-52); Hemoglobin 14.2 g/dL (14.0-18.0); Lymphocytes # (auto) 0.91 K/uL (1.2-3.4); Lymphocytes % (auto) 21.7 %; Mean Corpuscular Hemoglobin 32.4 pg (25-34); Mean Corpuscular Hgb Conc 34.8 g/dL (32-36); Mean Corpuscular Volume 93.2 fL (80-100); Mean Platelet Volume 10.8 fL (7.4-10.4); Monocytes # (auto) 0.31 K/uL (0.11-0.59); Monocytes % (auto) 7.4 %; Neutrophils # (auto) 2.83 K/uL (1.4-6.5); Neutrophils % (auto) 67.3 %; Platelet Count 125 K/uL (130-400); RDW Coefficient of Variation 12.6 % (11.5-14.5); RDW Standard Deviation 42.9 fL (36.4-46.3); Red Blood Count 4.38 M/uL (4.7-6.1)
[2019-08-12] MEDS ORDERED: CLOPIDOGREL BISULFATE 75 MG TAB PO SCH (09:15)
[2019-08-12] MEDS ORDERED: ASPIRIN 81 MG ECTAB PO SCH (09:15)
--- NOTE | 2019-08-12 09:15 | Cardiology Progress Note ---
Date of Service August 12, 2019 Assessment & Plan (1) Atypical chest pain: Atypical chest pain continues and has been constant since May. Noncardiac chest pain. Stable cardiac catheterization findings. (2) Dyspnea on exertion: Patient and is concerned that he may be hypervolemic. There is no obvious evidence of hypervolemia on exam. ProBNP ordered. If elevated, could try low-dose HCTZ however would otherwise recommend diagnostic pulmonary studies. He has not yet discussed the symptoms with his PCP, Dr. Rushing. (3) CAD in [place] artery: Status post CABG x3 and also PCI of left main into circumflex and POBA of D1. Stable catheterization findings with patent stent. Continue aspirin 81 mg daily. Continue Plavix. Continue statin therapy. He is not on a beta-breanna due to bradycardia in the past. (4) Benign essential hypertension: Blood pressure remains well controlled. No changes made at this time. (5) S/P CABG x 3: SVG to OM occluded. HOUSE to LAD and SVG to ramus patent on March 2019 cardiac catheterization. (6) H/O heart artery stent: Dual anti-platelet therapy as above. Stent patent as per cardiac catheterization yesterday by Dr. Ramirez. (7) HLD (hyperlipidemia): Continue statin therapy. He is tolerating Crestor 10 mg daily. Consider high-intensity statin therapy if tolerated. Disposition: Can be discharged from a cardiac perspective. He should follow up closely with Dr. Rushing for continued evaluation of noncardiac chest pain and dyspnea with exertion. Subjective Patient had cardiac catheterization done yesterday. There is no severe CAD to account for his symptoms. Chest pain continues and has been stable. It has been constant since May. He denies shortness of breath at rest, orthopnea, syncope, near-syncope, palpitations, edema, or bleeding. Review of systems: As above. Physical Exam Physical Exam: Gen.: No acute distress. Alert and oriented. HEENT: Anicteric sclera. Neck: No JVD. Cardiac: Regular, without ectopy. Normal S1-S2. No murmurs, rubs, or gallops. Pulmonary: Clear to auscultation bilaterally without wheezes, rales, or rhonchi. Abdomen: Soft, nontender, nondistended, with normoactive bowel sounds. No bruits noted. Extremities: 2+ radial pulses bilaterally. 2+ posterior tibialis pulses bilaterally. Right femoral catheterization area is clean, dry, and intact without erythema, discharge, or hematoma. No significant pitting edema or cyanosis. Psychiatric: Affect appears appropriate. Results & Data Vital Signs (Past 12 Hours) Vital Signs Temp Pulse Pulse Resp BP Pulse Ox 08/12/19 07:12 36.6 C 61 18 133/79 97 08/12/19 03:50 36.6 C 55 L 16 125/71 96 08/12/19 01:04 53 L 08/11/19 23:00 36.5 C 56 L 16 116/69 96 Laboratory Results Laboratory Results - last 24 hr 08/12/19 05:32 WBC 4.20 L RBC 4.38 L Hgb 14.2 Hct 40.8 L MCV 93.2 MCH 32.4 MCHC 34.8 RDW Std Deviation 42.9 RDW Coeff of Antonio 12.6 Plt Count 125 L MPV 10.8 H Immature Gran % (Auto) 0.0 Neut % (Auto) 67.3 Lymph % (Auto) 21.7 Graham % (Auto) 7.4 Eos % (Auto) 3.1 Baso % (Auto) 0.5 Immature Gran # (Auto) 0.00 Neut # (Auto) 2.83 Lymph # (Auto) 0.91 L Graham # (Auto) 0.31 Eos # (Auto) 0.13 Baso # (Auto) 0.02 Diagnostic Findings Telemetry personally reviewed: Sinus rhythm. Cardiac catheterization report reviewed: LM -Short with stent extending nearly back to the ostium, stent mildly narrowed at ostium of circumflex LAD -ostial stenosis 50 to 60%, mid LAD patent, ostial diagonal with 40 to 50% ostial stenosis. Competitive flow from HOUSE and mid LAD. Distal LAD with luminal irregularities Circumflex -moderate caliber vessel, widely patent stent to mid segment. Small ramus with diffuse disease. Small distal circumflex with luminal irregularities. RCA -large caliber vessel, dominant, 40% ostial, 50 to 60% focal mid RCA stenosis. Distal luminal irregularities IVUS of left main into circumflex stent Left main cannulated with JL 4 guide BMW wire placed in the distal circumflex [place] IVUS catheter placed distal to stent IVUS revealed widely patent stent with minimal in-stent narrowing at distal left main. Ostium of left main with mild calcified disease. Post procedure angiography revealed no apparent complications. Arterial Closure: Mynx Summary: 1. Multivessel [place] coronary artery disease -50 to 60% ostial LAD, severe disease in small ramus, 50% first diagonal, 50 to 60% mid RCA. 2. Patent left main into circumflex stent 3. Patent HOUSE to LAD, SVG to ramus Medications Administered Current Inpatient Medications Acetaminophen (Tylenol) 650 mg PO Q4H PRN PRN Reason: Mild Pain (scale 1-3) Stop: 09/10/19 15:26 Citalopram Hydrobromide (Celexa) 20 mg PO QPM STEPAN Stop: 09/10/19 20:59 Last Admin: 08/11/19 20:49 Dose: 20 mg Documented by: Ketorolac Tromethamine (Toradol) 15 mg IV Q6H PRN; Protocol PRN Reason: Pain Stop: 08/16/19 18:06 Nitroglycerin (Nitrostat) 0.4 mg SL UD PRN PRN Reason: Chest Pain Stop: 09/10/19 15:31 Ondansetron HCl (Zofran) 4 mg IV Q6H PRN PRN Reason: Nausea And Vomiting Stop: 09/10/19 15:26 Rosuvastatin Calcium (Crestor) 10 mg PO QPM STEPAN Stop: 09/10/19 20:59 Last Admin: 08/11/19 20:49 Dose: 10 mg Documented by: PG Care Time/CCT Total # of Minutes Spent Total Time Spent with Patient: Total time spent is greater than 50% in coordination of care (as documented) at patient's floor/unit and/or counseling patient:
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
== END 2019-08-12 12:26 | disposition home or self-care (01) ==
LOC: ED 06:14 → CC 13:31 → 2S 15:27 → INTOOBSV 15:27 → SUATTDRO 15:27
PROC: CLB.CCG (2019-08-11 13:30)